=== PATIENT | male | born 1955 | race Caucasian/White ===

== ENCOUNTER 2023-09-17 14:51 | Outpatient (AMB) | payer MEDICARE, OTHER, SELFPAY ==
--- NOTE | 2023-09-17 14:49 | A.OFFVISCC_ITS ---
Intake Vital Signs 09/17/23 14:53 BP 130/70 Blood Pressure Location Rt radial Position Sitting Respiration 19 Pulse 88 Pulse Source Pulse Oximeter Pulse Oximetry (%) 98 Oxygen Delivery Method Room Air Intake Visit Reasons: MAT Intake Allergies No Known Allergies Allergy (Verified 09/17/23 15:12) HPI MAT Intake HPI Details Patient presents for evaluation and treatment of ongoing opiate use Patient started oxycodone in 1997 for back injury Since that time he has been taking it off and on --non prescribed He reports he has been taking 2 10mg oxys TID. He believes them to be prescription medications, and adamant that thy are not pressed pills Taking this amount for 4 years -no history of overdose --last use , 09/12. Reports previous problematic drinking stopped drinking 5 years ago no liver issues (per his report) Medical History PCP: [facility] primary care at [facility] 2017--ruptured appendix Denies any chronic health issues. Denies daily medications aside from vitamins Vit B, Mg, NAC, crill oil pill Denies family history BH History Reports previously being treated for anxiety with lorazepam. Unclear when this was or by who Bayronetn withdrawl sx: achy, restless, irritable, Review of Systems Const Reports as per HPI Physical Exam Vital Signs: Last Vital Signs Pulse 88 09/17/23 14:53 Resp 19 09/17/23 14:53 BP 130/70 09/17/23 14:53 Pulse Ox 98 09/17/23 14:53 Oxygen Delivery Method Room Air 09/17/23 14:53 Const General: cooperative, no acute distress, awake and anxious Nutritional Appearance: average body habitus Orientation/consciousness: patient oriented x3 Limitations: no limitations Neuro General: patient oriented x3 Results AMB 14 Panel Urine Drug Screen Urine Marijuana (THC) Positive Last Edit by Carrol Baker RN on 09/17/23 15:39 Urine Cocaine Positive Last Edit by Carrol Baker RN on 09/17/23 15:39 Urine Morphine Negative Last Edit by Carrol Baker RN on 09/17/23 15:39 Urine Methamphetamine Negative Last Edit by Carorl Baker RN on 09/17/23 15:39 Urine Amphetamine Negative Last Edit by Carrol Baker RN on 09/17/23 15:39 Urine Benzodiazepine Negative Last Edit by Carrol Baker RN on 09/17/23 15 :39 Urine Barbiturates Negative Last Edit by Carrol Baker RN on 09/17/23 15:3 9 Urine Methadone Negative Last Edit by Carrol Baker RN on 09/17/23 15:39 Urine Buprenorphine Positive Last Edit by Carrol Baker RN on 09/17/23 15: 39 Urine Tricyclic Antidepressant Positive Last Edit by Carrol Baker RN on 09/17/23 15:39 Urine MDMA Negative Last Edit by Carrol Baker RN on 09/17/23 15:39 Urine Oxycodone Negative Last Edit by Carrol Baker RN on 09/17/23 15:39 Urine Phencyclidine Negative Last Edit by Carrol Baker RN on 09/17/23 15: 39 Urine Propoxyphene Negative Last Edit by Carrol Baker RN on 09/17/23 15:3 9 Results Reviewed Results Reviewed: Laboratory Last Values POC Urine Buprenorphine Positive 09/17/23 15:31 POC Urine Morphine Negative 09/17/23 15:31 POC Urine Oxycodone Negative 09/17/23 15:31 POC Urine Methadone Negative 09/17/23 15:31 POC Urine Propoxyphene Negative 09/17/23 15:31 POC Urine Barbiturates Negative 09/17/23 15:31 POC U Tricyclic Antidpr Positive 09/17/23 15:31 POC Urine PCP Negative 09/17/23 15:31 POC Ur Amphetamines Negative 09/17/23 15:31 POC Ur Methamphetamine Negative 09/17/23 15:31 POC Urine MDMA Negative 09/17/23 15:31 POC Ur Benzodiazepine Negative 09/17/23 15:31 POC Urine Cocaine Positive 09/17/23 15:31 POC Ur Marijuana (THC) Positive 09/17/23 15:31 Assessment & Plan Assessment & Plan (1) Opioid use disorder: Code(s): F11.90 - Opioid use, unspecified, uncomplicated Plan: * Discussed plan for starting buprenorphine * provided in writing and verbally * advised to call office tomorrow to check in * follow up in office one week * labs next visit Orders: Orders AMB 14 Panel Urine Drug Screen 09/17/23 Z51.81 - Encounter for therapeutic drug level monitoring Medications: New buprenorphine-naloxone 2-0.5 mg (Suboxone) 1 film sublingual TID 22 ea 0RF tizanidine 4 mg PO BID PRN 10 caps 0RF muscle spasticity hydroxyzine HCl 25 mg PO BID PRN 10 tabs 0RF anxiety Coding Level of Care Code New Pt Level 4 (07074) Diagnoses Opioid use disorder F11.90
[2023-09-17 14:53] VITALS: BP 130/70; PULSE 88; RESP 19; O2SAT 98
== END 2023-09-17 15:43 | disposition home or self-care (01) ==
PROVIDERS: Visit Provider Nurse Practitioner Psychiatric/Mental Health
DX: F11.90 Opioid use, unspecified, uncomplicated (principal)
CPT/HCPCS: 99204

== ENCOUNTER → 2023-09-17 14:51 | Outpatient (BNVA) | payer MEDICARE, OTHER, SELFPAY | PROVIDERS: Visit Provider Nurse Practitioner Psychiatric/Mental Health | DX: F11.90 Opioid use, unspecified, uncomplicated (principal) | CPT/HCPCS: 80305 ==

== ENCOUNTER 2023-09-27 11:12 | Outpatient (AMB) | payer MEDICARE, OTHER, SELFPAY ==
--- NOTE | 2023-09-27 11:06 | A.OFFVISCC_ITS ---
Vital Signs 09/27/23 11:24 BP 132/98 H Blood Pressure Location Rt brachial Position Sitting Pulse 80 Pulse Source Pulse Oximeter Pulse Oximetry (%) 98 Oxygen Delivery Method Room Air Intake Visit Reasons: MAT Visit Allergies No Known Allergies Allergy (Verified 09/27/23 11:06) HPI HPI MAT Visit: Details: Patient presents for follow up Has been taking 2mg BID, but dose is not adequate Still feeling very anxious and on edge throughout the day Open to increasing dose No constipation , has not used any opiates since prior to starting buprenorphine Review of Systems Const Reports as per HPI and Reports no additional complaints Physical Exam Vital Signs: Last Vital Signs Pulse 80 09/27/23 11:24 BP 132/98 H 09/27/23 11:24 Pulse Ox 98 09/27/23 11:24 Oxygen Delivery Method Room Air 09/27/23 11:24 Const General: cooperative and comfortable Nutritional Appearance: average body habitus Orientation/consciousness: patient oriented x3 Limitations: no limitations Neuro General: patient oriented x3 Psych Appearance: well kempt Speech and movement: Clear speech present Affect: normal affect Attitude: cooperative Thought process: Normal thought process present Judgement: Good judgement present (Psych) Assessment & Plan Assessment & Plan (1) Opioid use disorder: Code(s): F11.90 - Opioid use, unspecified, uncomplicated Category: Medical Plan: * increase suboxone dose to 4mg BID * labs ordered * follow up one week Orders: Orders HIV Ab/Ag Today F11.90 - Opioid use, unspecified, uncomplicated Comprehensive Met. Panel Today F11.90 - Opioid use, unspecified, uncomplicated Hepatitis C Antibody Today F11.90 - Opioid use, unspecified, uncomplicated Complete Blood Count Auto Diff Today F11.90 - Opioid use, unspecified, uncomplicated Liver Panel Today F11.90 - Opioid use, unspecified, uncomplicated Medications: New buprenorphine-naloxone 4-1 mg (Suboxone) 1 film sublingual BID 28 ea 0RF Discontinued buprenorphine-naloxone 2-0.5 mg (Suboxone) Discontinued Reason: Doctor's Order 1 film sublingual TID 22 ea 0RF
[2023-09-27 11:24] VITALS: BP 132/98; PULSE 80; O2SAT 98
== END 2023-09-27 11:52 | disposition home or self-care (01) ==
PROVIDERS: Visit Provider Nurse Practitioner Psychiatric/Mental Health
DX: F11.90 Opioid use, unspecified, uncomplicated (principal)
CPT/HCPCS: 99214

== ENCOUNTER → 2023-09-27 11:12 | Outpatient (BNVA) | payer OTHER, MEDICARE, SELFPAY | PROVIDERS: Visit Provider Nurse Practitioner Psychiatric/Mental Health | DX: Z51.81 Encounter for therapeutic drug level monitoring (principal) ==

== ENCOUNTER 2023-10-03 12:28 | Outpatient (REF) | payer MEDICARE, OTHER, SELFPAY ==
[2023-10-03 12:53] LABS: MANUAL DIFF FLAG NO
[2023-10-03 13:24] LABS: Basophils Absolute Auto 0.1 X10*3/uL (0.0-0.2); Eosinophils Absolute Auto 0.3 X10*3/uL (0.0-0.4); Hematocrit 44.3 % (42.0-52.0); Hemoglobin 15.1 g/dl (14.0-18.0); Imm Gran Abs Auto 0.02 X10*3/uL (0.00-0.03); Imm Gran Pct Auto 0.2 % (0.0-0.4); Lymphocytes Absolute Auto 2.2 X10*3/uL (1.2-4.9); Lymphocytes Percent Auto 26.5 % (20-40); Mean Corpuscular HGB Conc 34.1 g/dl (31.0-36.0); Mean Corpuscular Volume 85.2 fL (80.0-98.0); Mean Platelet Volume 8.4 fL (9.4-12.4); Monocytes Absolute Auto 0.5 X10*3/uL (0.1-1.2); Monocytes Percent Auto 6.3 % (2-11); Neutrophils Absolute Auto 5.2 x10*3/uL (2.0-8.3); Platelet Count 303 X10*3/uL (160-400); Red Cell Distribution Width 12.3 % (11.0-16.0); White Blood Count 8.2 X10*3/uL (4.8-10.8)
[2023-10-03 13:53] LABS: Alanine Aminotransferase 15 U/L (0-40); Albumin Level 4.1 g/dL (3.5-5.0); Alkaline Phosphatase 62 U/L (39-117); Anion Gap 9 (12-20); Aspartate Amino Transferase 16 U/L (5-37); Bilirubin Direct 0.3 mg/dL (0.0-0.5); Bilirubin Total 0.8 mg/dL (0.0-1.0); Blood Urea Nitrogen 9 mg/dL (9-16); Calcium 8.9 mg/dL (8.4-10.2); Carbon Dioxide 31 mmol/L (22-29); Chloride 103 mmol/L (96-108); Estimated Glomerular Filt Rate > 60; Glucose Random 102 mg/dL (60-115); Potassium 4.4 mmol/L (3.3-5.1); Sodium 139 mmol/L (135-145); Total Protein 7.5 g/dL (6.5-8.0)
[2023-10-04 05:32] LABS: HIV AB/AG Nonreactive (Nonreactive); HIV Num 1 0.05 S/CO (0.00-0.99)
[2023-10-04 05:43] LABS: ~Hepatitis C Antibody Reactive (Nonreactive)
== END 2023-10-03 12:29 | disposition home or self-care (01) ==
LOC: HO.LAB 12:28
PROVIDERS: Visit Provider Nurse Practitioner Psychiatric/Mental Health
DX: F11.20 Opioid dependence, uncomplicated (principal)
CPT/HCPCS: 36415; 80053; 82248; 85025; 86803; 87389

== ENCOUNTER 2023-10-03 12:55 | Outpatient (AMB) | payer MEDICARE, OTHER, SELFPAY ==
--- NOTE | 2023-10-03 13:05 | A.OFFVISCC_ITS ---
Vital Signs 10/03/23 13:09 BP 152/94 H Blood Pressure Location Rt brachial Position Sitting Pulse 71 Pulse Source Pulse Oximeter Pulse Oximetry (%) 98 Oxygen Delivery Method Room Air Intake Visit Reasons: MAT Visit Allergies No Known Allergies Allergy (Verified 10/08/23 11:25) HPI HPI MAT Visit: Details: Patient presents for follow up Doing well with suboxone dose increase some anxiety still lio when he is not busy discussed coping strategies lab work completed [facility] Social History Smoked in Last 30 Days: No Use of substances other than those prescribed or required for medical reasons: Yes Substance Use Type: Marijuana Substance Use Frequency: Occasionally Advance Directives: No Advance Directives Information Provided: Yes Do you have a plan to hurt others: No Plan Review of Systems Const Reports as per HPI and Reports no additional complaints Physical Exam Vital Signs: Last Vital Signs Pulse 71 10/03/23 13:09 BP 152/94 H 10/03/23 13:09 Pulse Ox 98 10/03/23 13:09 Oxygen Delivery Method Room Air 10/03/23 13:09 Const General: cooperative and comfortable Nutritional Appearance: average body habitus Orientation/consciousness: patient oriented x3 Limitations: no limitations Neuro General: patient oriented x3 Psych Appearance: well kempt Speech and movement: Clear speech present Affect: normal affect Attitude: cooperative Thought process: Normal thought process present Judgement: Good judgement present (Psych) Assessment & Plan Assessment & Plan (1) Opioid use disorder: Code(s): F11.90 - Opioid use, unspecified, uncomplicated Category: Medical Plan: * continue suboxone at current dose * labs to be reviewed at next visit * follow up one week
[2023-10-03 13:09] VITALS: BP 152/94; PULSE 71; O2SAT 98
== END 2023-10-03 13:29 | disposition home or self-care (01) ==
PROVIDERS: Visit Provider Nurse Practitioner Psychiatric/Mental Health
DX: F11.90 Opioid use, unspecified, uncomplicated (principal)
CPT/HCPCS: 99213

== ENCOUNTER 2023-10-08 11:02 | Emergency (ER) | payer MEDICARE, OTHER, SELFPAY ==
--- NOTE | ~2023-10-08 | XR_ITS ---
EXAMINATION: XR FOOT, RIGHT CLINICAL INFORMATION: Right foot pain. COMPARISON: None available. TECHNIQUE: AP, lateral, and oblique views of the right foot. FINDINGS: No acute fracture or dislocation. Joint space narrowing with small marginal osteophytes along the dorsal aspect of the talonavicular, cuneonavicular, and tarsometatarsal joints. Tiny plantar calcaneal spur. Small tibiotalar marginal osteophytes. Circumferential forefoot edema. No radiopaque foreign body. XR/XR foot RT min 3V IMPRESSION: 1. Circumferential forefoot edema without radiopaque foreign body. 2. Mild degenerative arthritis at the tibiotalar, talonavicular, and tarsometatarsal joints. 3. Tiny plantar calcaneal spur.
[2023-10-08 11:21] VITALS: BP 148/76; PULSE 82; RESP 16; TEMP 36.1; O2SAT 96; BMI 33.1
--- NOTE | 2023-10-08 11:22 | ED.GENADULT ---
HPI - General Adult General Chief complaint: Extremity Injury, Lower Stated complaint: Gout flare? Time Seen by Provider: 10/08/23 11:52 Source: patient Mode of arrival: ambulatory Limitations: no limitations History of Present Illness HPI narrative: 68 yo male who presents to the ED with complaint of right foot pain X3 days. denies any known injury; states he woke up with the pain, swelling and redness. pain is worse with walking and weight bearing. he denies any known history of gout. denies fever, chills, nausea, vomiting, chest pain, shortness of breath, prior history of blood clots. patient did not try anything for pain at home; he recently started suboxone therapy. patient reports drinking alcohol occasionally and does consume a fare amount of red meat. Patient denies IVDU Onset (ago): day(s) (3) Location: lower extremity (right foot) Radiation: non-radiation Severity: moderate Severity scale (1-10): 7 Quality: burning, sharp and constant Relieving factors: none Related Data Previous Rx's ?Medication ?Instructions ?Recorded hydroxyzine HCl 25 mg tablet 25 mg PO BID PRN anxiety #10 tabs 09/17/23 tizanidine 4 mg capsule 4 mg PO BID PRN muscle spasticity 09/17/23 #10 caps buprenorphine 4 mg-naloxone 1 mg 1 film sublingual BID #28 ea 09/28/23 sublingual film (Suboxone) naproxen 500 mg tablet 500 mg PO BID #20 tabs 10/08/23 prednisone 20 mg tablet See Rx Instructions .Route 10/08/23 .COMPLEX 12 days #20 tabs Allergies Allergy/AdvReac Type Severity Reaction Status Date / Time No Known Allergies Allergy Verified 10/08/23 11:25 Review of Systems Review of Systems: per HPI Yes all other systems are reviewed and are negative PMFSH Social History Social History Smoked in Last 30 Days: No Use of substances other than those prescribed or required for medical reasons: Yes Substance Use Type: Marijuana Substance Use Frequency: Occasionally Advance Directives: No Advance Directives Information Provided: Yes Do you have a plan to hurt others: No Plan Physical Exam ED Vital Signs: Vital Signs - 24 hr 10/08/23 11:21 10/08/23 15:07 10/08/23 15:19 Temperature 97 F 99.0 F 99.0 F Pulse Rate 82 74 74 Respiratory Rate 16 18 18 Blood Pressure 148/76 H 140/77 H 140/77 H Pulse Oximetry 96 98 98 Oxygen Delivery Method Room Air Room Air Room Air BMI result Body Mass Index 33.1 Const General: cooperative, no acute distress, well developed, alert and awake HENMT Head: Yes normal to inspection Neck Neck: Yes normal visual inspection, Yes full ROM and Yes no lymphadenopathy Resp Effort & Inspection: normal respiratory effort and able to speak in complete sentences Auscultation: clear to auscultation bilaterally Cardio Rate: regular rate Rhythm: regular rhythm Skin Rashes: no rashes Trauma: no lacerations or abrasions Wounds: no wounds Extrem Other: right lower extremity with moderate swelling to right foot; erythema and increased warmth to the 1st metatarsal joint. area is tender to touch. normal ROM of all toes; normal capillary refill and sensation Course Course Course Narrative: This is an RME: Additional HPI, ROS, PE not included below will be deferred to primary provider. 68 yo m with pmhx of opioid use disorder presents with right big toe pain since sunday. States he has never had gout previously. No trauma to area, has trouble walking. Denies cp, sob, fever, chills, nausea, vomiting, diarrhea. Medical Decision Making Medical Decision Making MDM Narrative: 68 yo male with PMH of opiate use disorder who presents to the ED with complaint of non-traumatic right foot pain X3 days. HPI and physical exam as above. upon presentation patient is hemodynamically stable, afrebrile, with stable vital signs. patient is not ill or toxic appearing DDx include but not limited to gout flare, cellulitis, septic arthritis, stress fracture Xray showed: - Circumferential forefoot edema without radiopaque foreign body. - Mild degenerative arthritis at the tibiotalar, talonavicular, and tarsometatarsal joints. - Tiny plantar calcaneal spur. Laboratory results are notable for uric acid of 8.3 but otherwise reassuring; no leukocytosis or significant metabolic derangement. given clinical presentation and results of evaluation symptoms are most likely due to gout flare. Doubt infectious etiologies. Will treat with prednisone taper and naproxen. discussed results of evaluation with the patient. advised on supportive care and outpatient follow up. Advised on outpatient follow up and provided contact information for local PCP offices for patient to establish care. Discussed with the patient when to seek medical attention for any new or concerning symptoms. Patient expressed understanding and agrees to treatment plan. Lab Data MDM Lab Attestation statement: I reviewed the patient's lab results. 10/08/23 13:57 10/08/23 13:56 Labs: Lab Results 10/08/23 10/08/23 Range/Units 13:56 13:57 WBC 9.7 (4.8-10.8) X10*3/uL RBC 5.06 (4.60-5.80) X10*6/uL Hgb 14.8 (14.0-18.0) g/dl Hct 43.4 (42.0-52.0) % MCV 85.8 (80.0-98.0) fL MCH 29.2 (27.0-33.0) pg MCHC 34.1 (31.0-36.0) g/dl RDW 12.5 (11.0-16.0) % Plt Count 318 (160-400) X10*3/uL MPV 8.3 L (9.4-12.4) fL Immature Gran % (Auto) 0.3 (0.0-0.4) % Neut % (Auto) 67.0 (45-73) % Lymph % (Auto) 22.5 (20-40) % Norton % (Auto) 7.7 (2-11) % Eos % (Auto) 1.9 (0-4) % Baso % (Auto) 0.6 (0-2) % Lymph # (Auto) 2.2 (1.2-4.9) X10*3/uL Norton # (Auto) 0.8 (0.1-1.2) X10*3/uL Eos # (Auto) 0.2 (0.0-0.4) X10*3/uL Baso # (Auto) 0.1 (0.0-0.2) X10*3/uL Abs Immat Gran (auto) 0.03 (0.00-0.03) X10*3/uL Absolute Neuts (auto) 6.5 (2.0-8.3) x10*3/uL Absolute Nucleated RBC 0.000 (0.0-0.012) X10*3/uL Nucleated RBC % (auto) 0.0 (0.0-0.2) /100WBC Sodium 137 (135-145) mmol/L Potassium 4.8 (3.3-5.1) mmol/L Chloride 100 (96-108) mmol/L Carbon Dioxide 32 H (22-29) mmol/L Anion Gap 10 L (12-20) BUN 14 (9-16) mg/dL Creatinine 0.91 (0.5-1.4) mg/dL Estim Creat Clear Calc 93.9 Estimated GFR > 60 Random Glucose 99 (60-115) mg/dL Uric Acid 8.3 H (3.4-7.0) mg/dL Calcium 9.5 D (8.4-10.2) mg/dL Independent Interpretation I performed an independent interpretation of an: Plain X-Ray Radiology Impression Discussion of test interpretation with radiology: I have reviewed the radiologist's reading. Radiologist Impression: No acute fracture or dislocation. Joint space narrowing with small marginal osteophytes along the dorsal aspect of the talonavicular, cuneonavicular, and tarsometatarsal joints. Tiny plantar calcaneal spur. Small tibiotalar marginal osteophytes. Circumferential forefoot edema. No radiopaque foreign body. External Record Review External record reviewed: Office record, Outpatient record and Prior outpatient labs Prescription Management I considered prescription management with: Pain Medication Social Determinants Patient?s care significantly limited by Social Determinants of Health including: Other Social Determinant of Health No PCP Discharge Plan Discharge Clinical Impression: Acute foot pain, Gout attack Patient Disposition: Home, Self-Care Instructions: Gout (ED) Additional Instructions: Your symptoms are most likely secondary to gout. You were given prescription for prednisone taper and naproxen, please, take as prescribed and make sure to complete the entire prescription of prednisone. Avoid alcohol, red meat, and sea food. We recommend you establish care with primary care clinic at your earliest convenience for proper follow up. Return to the ED for any new or concerning symptoms. Prescriptions: New prednisone 20 mg tablet See Rx Instructions .ROUTE .COMPLEX 12 Days Qty: 20 0RF Rx Instructions: 60 mg (3 tabs) orally once daily for 3 days; then take 40 mg (2 tabs) orally once daily for 3 day; then take 20 mg (1 tab) orally once daily for 3 day; then take 10 mg (0.5 tab) orally once daily for 3 day. naproxen 500 mg tablet 500 mg PO BID Qty: 20 0RF No Action buprenorphine-naloxone [Suboxone] 4-1 mg film 1 film sublingual BID Qty: 28 0RF tizanidine 4 mg capsule 4 mg PO BID PRN (Reason: muscle spasticity) Qty: 10 0RF hydroxyzine HCl 25 mg tablet 25 mg PO BID PRN (Reason: anxiety) Qty: 10 0RF Interventions: ED Discharge Assessment Last Done: 10/08/23 15:19 Discharge Date/Time: 10/08/23 15:21 Print Language: Sami
--- NOTE | 2023-10-08 13:51 | PC.NURSE ---
this nurse attempted x1 to get labs with butterfly-per request of patient. the area immediately blew upon getting flash, the pt refusing to allow labs to be drawn.
[2023-10-08 14:01] LABS: MANUAL DIFF FLAG NO
[2023-10-08 14:03] LABS: Basophils Absolute Auto 0.1 X10*3/uL (0.0-0.2); Basophils Percent Auto 0.6 % (0-2); Eosinophils Absolute Auto 0.2 X10*3/uL (0.0-0.4); Eosinophils Percent Auto 1.9 % (0-4); Hematocrit 43.4 % (42.0-52.0); Hemoglobin 14.8 g/dl (14.0-18.0); Imm Gran Abs Auto 0.03 X10*3/uL (0.00-0.03); Imm Gran Pct Auto 0.3 % (0.0-0.4); Lymphocytes Absolute Auto 2.2 X10*3/uL (1.2-4.9); Lymphocytes Percent Auto 22.5 % (20-40); Mean Corpuscular HGB Conc 34.1 g/dl (31.0-36.0); Mean Corpuscular Hemoglobin 29.2 pg (27.0-33.0); Mean Corpuscular Volume 85.8 fL (80.0-98.0); Mean Platelet Volume 8.3 fL (9.4-12.4); Monocytes Absolute Auto 0.8 X10*3/uL (0.1-1.2); Monocytes Percent Auto 7.7 % (2-11); Neutrophils Absolute Auto 6.5 x10*3/uL (2.0-8.3); Platelet Count 318 X10*3/uL (160-400); Red Blood Count 5.06 X10*6/uL (4.60-5.80); Red Cell Distribution Width 12.5 % (11.0-16.0); White Blood Count 9.7 X10*3/uL (4.8-10.8)
[2023-10-08 14:45] LABS: Anion Gap 10 (12-20); Blood Urea Nitrogen 14 mg/dL (9-16); Calcium 9.5 mg/dL (8.4-10.2); Carbon Dioxide 32 mmol/L (22-29); Chloride 100 mmol/L (96-108); Creatinine Clr Calc Pharmacy 93.9; Estimated Glomerular Filt Rate > 60; Glucose Random 99 mg/dL (60-115); Potassium 4.8 mmol/L (3.3-5.1); Sodium 137 mmol/L (135-145)
[2023-10-08 14:47] LABS: Uric Acid 8.3 mg/dL (3.4-7.0)
[2023-10-08 15:07] VITALS: BP 140/77; PULSE 74; RESP 18; TEMP 37.2; O2SAT 98
[2023-10-08 15:19] VITALS: BP 140/77; PULSE 74; RESP 18; TEMP 37.2; O2SAT 98
== END 2023-10-08 15:21 | disposition home or self-care (01) ==
PROVIDERS: Physician Assistant; Emergency Provider Emergency Medicine
DX: M10.071 Idiopathic gout, right ankle and foot (principal); M79.671 Pain in right foot; Z79.899 Other long term (current) drug therapy
CPT/HCPCS: 36415; 73630; 80048; 84550; 85025; 99283; 99284

== ENCOUNTER 2023-10-10 10:17 | Outpatient (AMB) | payer MEDICARE, OTHER, SELFPAY ==
[2023-10-10 10:21] VITALS: BP 160/92; PULSE 84; O2SAT 98
--- NOTE | 2023-10-10 10:21 | A.OFFVISCC_ITS ---
Vital Signs 10/10/23 10:21 BP 160/92 H Blood Pressure Location Rt brachial Position Sitting Pulse 84 Pulse Source Pulse Oximeter Pulse Oximetry (%) 98 Oxygen Delivery Method Room Air Intake Visit Reasons: MAT Visit Allergies No Known Allergies Allergy (Verified 10/10/23 10:22) HPI HPI MAT Visit: Details: Patient presents for follow up and review of lab work Recently in ED with gout--new for him Tolerating current suboxone dose Discussed lab results and +Hepatitis C antibody result. Patient appearing quite surprised and anxious by this news. He denies any previous diagnosis, although unclear if he has even ever been tested. Reviewed risk factors and answered patient questions and concerns. Provided reassurance and support Discussed next steps including additional lab work and referral to ID provider to further evaluate [facility] Social History Substance Use Type: Marijuana Review of Systems Const Reports as per HPI Physical Exam Vital Signs: Last Vital Signs Pulse 84 10/10/23 10:21 BP 160/92 H 10/10/23 10:21 Pulse Ox 98 10/10/23 10:21 Oxygen Delivery Method Room Air 10/10/23 10:21 Const General: cooperative and comfortable Nutritional Appearance: average body habitus Orientation/consciousness: patient oriented x3 Limitations: no limitations Neuro General: patient oriented x3 Psych Appearance: well kempt Speech and movement: Clear speech present Affect: Anxious affect present Attitude: cooperative Thought process: Normal thought process present and Circumstantial thought process present Judgement: Good judgement present (Psych) Assessment & Plan Assessment & Plan (1) Opioid use disorder: Code(s): F11.90 - Opioid use, unspecified, uncomplicated Category: Medical Plan: * continue suboxone at current dose * referral to ID * VL and hepatitis A&B screen ordered * HIV negative * follow up 2 weeks Orders: Referrals Infectious Disease Referral B18.2 - Chronic viral hepatitis C Medications: New buprenorphine-naloxone 4-1 mg (Suboxone) 1 film buccal TID 42 ea 0RF Discontinued buprenorphine-naloxone 4-1 mg Discontinued Reason: Doctor's Order 1 film sublingual BID 28 ea 0RF
== END 2023-10-10 10:54 | disposition home or self-care (01) ==
PROVIDERS: Visit Provider Nurse Practitioner Psychiatric/Mental Health
DX: F11.90 Opioid use, unspecified, uncomplicated (principal)
CPT/HCPCS: 99214

== ENCOUNTER → 2023-10-10 10:17 | Outpatient (BNVA) | payer OTHER, MEDICARE, SELFPAY | PROVIDERS: Visit Provider Nurse Practitioner Psychiatric/Mental Health | DX: Z51.81 Encounter for therapeutic drug level monitoring (principal) ==

== ENCOUNTER 2023-10-22 15:12 | Outpatient (AMB) | payer MEDICARE, OTHER, SELFPAY ==
--- NOTE | 2023-10-22 15:17 | MHC.OFFVIS ---
Vital Signs 10/22/23 15:31 Height 5 ft 9 in Weight 229 lb BMI 33.8 BP 151/83 H Blood Pressure Location Lt brachial Position Sitting Pulse 106 H Pulse Source Pulse Oximeter Pulse Oximetry (%) 97 Oxygen Delivery Method Room Air Intake Visit Reasons: reff Radha nice/Hep C Allergies No Known Allergies Allergy (Verified 10/22/23 15:31) HPI HPI reff Radha nice/Hep C: Details: He has new positive diagnosis Hepatitis C he is concerned about. Viral load is nonreactive. HIV is negative. FORMERLY [facility], 1928–1983 Medical History Hepatitis C Social History Substance Use Type: Marijuana Review of Systems Const All systems reviewed & are unremarkable except as noted in HPI and below Physical Exam Vital Signs: Last Vital Signs Pulse 106 H 10/22/23 15:31 BP 151/83 H 10/22/23 15:31 Pulse Ox 97 10/22/23 15:31 Oxygen Delivery Method Room Air 10/22/23 15:31 BMI result Body Mass Index 33.8 Const General: cooperative Orientation/consciousness: patient oriented x3 HEENT Head: Yes normal to inspection Mouth: Normal oral and palatal mucosa present Eyes General: appearance normal, both eyes and all related structures Pupils: Equal, round and reactive pupils present Resp Effort & Inspection: normal respiratory effort Cardio Rate: regular rate Rhythm: regular rhythm GI Palpation (GI): Soft to palpation and nontender General: Yes no CVA tenderness Back/Spine/Pelvis Back: no CVA tenderness Skin General skin exam: no rashes or lesions noted Neuro General: patient oriented x3 Cranial nerves: Yes CN's II-XII intact bilaterally and Yes Equal, round and reactive pupils present Extrem General: Yes normal to inspection Psych Appearance: grossly normal Assessment & Plan Assessment & Plan (1) Hepatitis C: Comment: He is undetectable,not contagious Code(s): B19.20 - Unspecified viral hepatitis C without hepatic coma Category: Medical Plan: No need for treatment, Hepatitis is resolved by self. Orders: Orders Liver Fibrosis Pnl 10/23/23 B19.20 - Unspecified viral hepatitis C without hepatic coma Prothrombin Time INR 10/23/23 B19.20 - Unspecified viral hepatitis C without hepatic coma Coding Level of Care Code New Pt Level 3 (08655) Diagnoses Hepatitis C B19.20
[2023-10-22 15:31] VITALS: BP 151/83; PULSE 106; O2SAT 97; BMI 33.8
== END 2023-10-22 15:18 | disposition home or self-care (01) ==
LOC: HO.HID 15:12
PROVIDERS: Visit Provider Internal Medicine
DX: B19.20 Unspecified viral hepatitis C without hepatic coma (principal)
CPT/HCPCS: 99203

== ENCOUNTER → 2023-10-22 15:12 | Outpatient (BNVA) | payer MEDICARE, OTHER, SELFPAY | PROVIDERS: Visit Provider Internal Medicine | DX: B19.20 Unspecified viral hepatitis C without hepatic coma (principal) | CPT/HCPCS: 99202 ==

== ENCOUNTER 2023-10-23 10:08 | Outpatient (REF) | payer MEDICARE, OTHER, SELFPAY ==
[2023-10-23 11:18] LABS: Prothrombin Time 11.9 SEC (11.1-13.3)
[2023-10-24 08:16] LABS: HBS Num1 0.26 mIU/mL (0-7.99); HBc Num1 0.36 S/CO (0.00-0.79); HBsAGNum1 0.23 S/CO (0.00-0.99); Hepatitis B Core Antibody Nonreactive (Nonreactive); Hepatitis B Surface Antigen Negative (Negative); ~Hepatitis B Surface Antibody NONREACTIVE (Nonreactive)
[2023-10-24 08:22] LABS: Hepatitis A Antibody IgG REACTIVE (Nonreactive); Hepatitis A Antibody IgM 0.37 Index (0-0.79); ~Hepatitis A Antibody IgM Nonreactive (Nonreactive)
[2023-10-24 16:08] LABS: HCV Log PCR <1.18 NOT DETECTED Log IU/mL (NOT DETECTED); HepC Viral Load <15 NOT DETECTED IU/mL (NOT DETECTED)
[2023-11-02 01:13] LABS: FIB-ALT 15 U/L (9-46); FIB-Alpha-2-Macroglobulin 146 mg/dL (106-279); FIB-Apolipoprotein A1 144 mg/dL (94-176); FIB-GGT 21 U/L (3-70); FIB-Haptoglobin 176 mg/dL (43-212); FIB-Total Bilirubin 0.7 mg/dL (0.2-1.2); Liver Fibrosis Score 0.19; Liver Fibrosis Stage F0; Nec Inflam Act Grade A0; Nec Inflam Act Score 0.04
== END 2023-10-23 10:09 | disposition home or self-care (01) ==
LOC: HO.LAB 10:08
PROVIDERS: PCP Internal Medicine; Visit Provider Nurse Practitioner Psychiatric/Mental Health
DX: B19.20 Unspecified viral hepatitis C without hepatic coma (principal)
CPT/HCPCS: 36415; 81596; 85610; 86704; 86706; 86708; 86709; 87340; 87522

== ENCOUNTER 2023-10-24 09:53 | Outpatient (AMB) | payer MEDICARE, OTHER, SELFPAY ==
--- NOTE | 2023-10-24 09:54 | MHC.AM.SUB ---
Vital Signs 10/24/23 09:56 BP 148/80 H Blood Pressure Location Lt brachial Position Sitting Pulse 106 H Pulse Source Pulse Oximeter Pulse Oximetry (%) 99 Oxygen Delivery Method Room Air Intake Visit Reasons: MAT Follow up Allergies No Known Allergies Allergy (Verified 10/22/23 15:31) HPI HPI MAT Follow up: Details: Patient presents for OUD treatment follow up Doing well with current suboxone dose (TID) no side effects from medication reported Saw ID provider earlier this week -more labs drawn He states that she feels he may have had it and cleared it. Reporting increase in anxiety issues at work --planning to fully retire in June 2024 more free time found that hydroxyzine was helpful-will refill today [facility] Medical History (Updated 10/22/23 @ 15:52 by Susan Herrera MD) Hepatitis C Social History Substance Use Type: Marijuana Review of Systems Const Reports as per HPI Physical Exam Vital Signs: Last Vital Signs Pulse 106 H 10/24/23 09:56 BP 148/80 H 10/24/23 09:56 Pulse Ox 99 10/24/23 09:56 Oxygen Delivery Method Room Air 10/24/23 09:56 Const General: cooperative, healthy appearing and no acute distress Nutritional Appearance: average body habitus Orientation/consciousness: patient oriented x3 Limitations: no limitations Neuro General: patient oriented x3 Psych Appearance: well kempt Speech and movement: Normal speech and movement present Affect: normal affect Attitude: cooperative Thought process: Normal thought process present and Circumstantial thought process present Thought content: Normal thought content present Insight: Good insight present (Psych) Judgement: Good judgement present (Psych) Assessment & Plan Assessment & Plan (1) Opioid use disorder: Code(s): F11.90 - Opioid use, unspecified, uncomplicated Category: Medical Plan: continue suboxone at current dose refilled hydroxyxzine PRN for anxiety follow up 2 weeks Medications: Refilled hydroxyzine HCl 25 mg PO BID PRN 30 tabs 0RF anxiety buprenorphine-naloxone 4-1 mg (Suboxone) 1 film buccal TID 42 ea 0RF
[2023-10-24 09:56] VITALS: BP 148/80; PULSE 106; O2SAT 99
== END 2023-10-24 10:15 | disposition home or self-care (01) ==
PROVIDERS: Visit Provider Nurse Practitioner Psychiatric/Mental Health
DX: F11.90 Opioid use, unspecified, uncomplicated (principal)
CPT/HCPCS: 99213

== ENCOUNTER → 2023-10-24 09:53 | Outpatient (BNVA) | payer OTHER, MEDICARE, SELFPAY | PROVIDERS: Visit Provider Nurse Practitioner Psychiatric/Mental Health | DX: Z51.81 Encounter for therapeutic drug level monitoring (principal) ==

== ENCOUNTER 2023-11-06 09:21 | Outpatient (AMB) | payer MEDICARE, OTHER, SELFPAY ==
[2023-11-06 09:25] VITALS: BP 128/76; PULSE 75; O2SAT 96
--- NOTE | 2023-11-06 09:25 | A.OFFVISCC_ITS ---
Vital Signs 11/06/23 09:25 BP 128/76 Blood Pressure Location Rt brachial Position Sitting Pulse 75 Pulse Source Pulse Oximeter Pulse Oximetry (%) 96 Oxygen Delivery Method Room Air Intake Visit Reasons: MAT Follow up Allergies No Known Allergies Allergy (Verified 10/22/23 15:31) HPI HPI MAT Follow up: Details: Patient presents for OUD treatment follow up Still having difficulty difficulty finding primary care--has called numerous times per his report No Hepatitis C VL --happy to hear this. ID called him on Sunday to inform him of his lab results Suboxone dose stable and managing sx well PFSH Medical History Hepatitis C Social History Substance Use Type: Marijuana Review of Systems Const Reports as per HPI and Reports no additional complaints Physical Exam Vital Signs: Last Vital Signs Pulse 75 11/06/23 09:25 BP 128/76 11/06/23 09:25 Pulse Ox 96 11/06/23 09:25 Oxygen Delivery Method Room Air 11/06/23 09:25 Const General: cooperative, healthy appearing and no acute distress Nutritional Appearance: average body habitus Orientation/consciousness: patient oriented x3 Limitations: no limitations Neuro General: patient oriented x3 Psych Appearance: well kempt Speech and movement: Normal speech and movement present Affect: normal affect Attitude: cooperative Thought process: Normal thought process present and Circumstantial thought process present Thought content: Normal thought content present Insight: Good insight present (Psych) Judgement: Good judgement present (Psych) Assessment & Plan Assessment & Plan (1) Opioid use disorder: Code(s): F11.90 - Opioid use, unspecified, uncomplicated Category: Medical Plan: * continue suboxone at current dose * follow up 2 weeks * office staff to assist with scheduling PCP appt Medications: Refilled buprenorphine-naloxone 4-1 mg (Suboxone) 1 film buccal TID 42 ea 0RF
== END 2023-11-06 09:46 | disposition home or self-care (01) ==
PROVIDERS: Visit Provider Nurse Practitioner Psychiatric/Mental Health
DX: F11.90 Opioid use, unspecified, uncomplicated (principal)
CPT/HCPCS: 99213

== ENCOUNTER → 2023-11-06 09:21 | Outpatient (BNVA) | payer OTHER, MEDICARE, SELFPAY | PROVIDERS: Visit Provider Nurse Practitioner Psychiatric/Mental Health | DX: Z51.81 Encounter for therapeutic drug level monitoring (principal) ==

== ENCOUNTER 2023-11-21 12:58 | Outpatient (AMB) | payer MEDICARE, OTHER, SELFPAY ==
--- NOTE | 2023-11-21 12:58 | MHC.OFFVIS ---
Vital Signs 11/21/23 13:04 BP 140/82 H Blood Pressure Location Rt brachial Position Sitting Pulse 78 Pulse Source Pulse Oximeter Pulse Oximetry (%) 98 Oxygen Delivery Method Room Air Intake Visit Reasons: MAT Visit Allergies No Known Allergies Allergy (Verified 11/21/23 12:58) HPI HPI MAT Visit: Details: Patient presents for OUD treatment follow up Doing well with current suboxone dose Denies any side effects Appearing restless, reports he drank an energy drink prior to coming in Very grateful regarding assistance getting PCP appt made Going to [place], [place] over the weekend with friends [facility] Medical History Hepatitis C Social History Substance Use Type: Marijuana Review of Systems Const Reports as per HPI Physical Exam Vital Signs: Last Vital Signs Pulse 78 11/21/23 13:04 BP 140/82 H 11/21/23 13:04 Pulse Ox 98 11/21/23 13:04 Oxygen Delivery Method Room Air 11/21/23 13:04 Const General: cooperative, healthy appearing and no acute distress Nutritional Appearance: average body habitus Orientation/consciousness: patient oriented x3 Limitations: no limitations Neuro General: patient oriented x3 Psych Appearance: well kempt Speech and movement: Normal speech and movement present Affect: normal affect Attitude: cooperative Thought process: Normal thought process present and Circumstantial thought process present Thought content: Normal thought content present Insight: Good insight present (Psych) Judgement: Good judgement present (Psych) Assessment & Plan Assessment & Plan (1) Opioid use disorder: Code(s): F11.90 - Opioid use, unspecified, uncomplicated Category: Medical Plan: continue suboxone at current dose follow up 2 weeks Medications: Refilled buprenorphine-naloxone 4-1 mg (Suboxone) 1 film buccal TID 42 ea 0RF Coding Level of Care Code Est Pt Level 3 (27863) Diagnoses Opioid use disorder F11.90
[2023-11-21 13:04] VITALS: BP 140/82; PULSE 78; O2SAT 98
== END 2023-11-21 13:23 | disposition home or self-care (01) ==
PROVIDERS: Visit Provider Nurse Practitioner Psychiatric/Mental Health
DX: F11.90 Opioid use, unspecified, uncomplicated (principal)
CPT/HCPCS: 99213

== ENCOUNTER → 2023-11-21 12:58 | Outpatient (BNVA) | payer MEDICARE, OTHER, SELFPAY | PROVIDERS: Visit Provider Nurse Practitioner Psychiatric/Mental Health | DX: F11.20 Opioid dependence, uncomplicated (principal); Z79.899 Other long term (current) drug therapy | CPT/HCPCS: 99212 ==

== ENCOUNTER 2023-12-04 10:29 | Outpatient (AMB) | payer MEDICARE, OTHER, SELFPAY ==
--- NOTE | 2023-12-04 10:34 | A.OFFVISCC_ITS ---
Intake Visit Reasons: MAT Visit Allergies ibuprofen Allergy (Intermediate, Verified 12/04/23 10:40) Hives HPI HPI MAT Visit: Details: Patient presents for follow up Currently prescribed Suboxone 4mg TID Reports feeling overall better, life is good , however still experiencing pain in knees and feet First appt with new PCP is January 06 Denies any side effects related to Suboxone PFSH Medical History Hepatitis C Social History Substance Use Type: Marijuana Review of Systems Const Reports as per HPI and Reports no additional complaints Physical Exam Const General: cooperative, healthy appearing and no acute distress Nutritional Appearance: average body habitus Orientation/consciousness: patient oriented x3 Limitations: no limitations Neuro General: patient oriented x3 Psych Appearance: well kempt Speech and movement: Normal speech and movement present Affect: normal affect Attitude: cooperative Thought process: Normal thought process present Thought content: Normal thought content present Insight: Good insight present (Psych) Judgement: Good judgement present (Psych) Assessment & Plan Assessment & Plan (1) Opioid use disorder: Code(s): F11.90 - Opioid use, unspecified, uncomplicated Category: Medical Plan: * continue suboxone at current dose * follow up 5 weeks due to provider appt * given 4 week rx with refill Medications: Refilled buprenorphine-naloxone 4-1 mg (Suboxone) 1 film buccal TID 90 ea 1RF
== END 2023-12-04 11:06 | disposition home or self-care (01) ==
PROVIDERS: Visit Provider Nurse Practitioner Psychiatric/Mental Health
DX: F11.90 Opioid use, unspecified, uncomplicated (principal)
CPT/HCPCS: 99213

== ENCOUNTER → 2023-12-04 10:29 | Outpatient (BNVA) | payer MEDICARE, OTHER, SELFPAY | PROVIDERS: Visit Provider Nurse Practitioner Psychiatric/Mental Health | DX: F11.20 Opioid dependence, uncomplicated (principal); Z79.899 Other long term (current) drug therapy | CPT/HCPCS: 99212 ==

== ENCOUNTER 2024-01-11 11:08 | Outpatient (AMB) | payer MEDICARE, OTHER, SELFPAY ==
[2024-01-11 11:10] VITALS: BP 140/78; PULSE 66; O2SAT 97; BMI 33.1
--- NOTE | 2024-01-11 11:10 | MHC.PC.OV ---
Vital Signs 01/11/24 11:10 Height 5 ft 9 in Weight 224 lb BMI 33.1 BP 140/78 H Blood Pressure Location Lt brachial Position Sitting Pulse 66 Pulse Source Pulse Oximeter Pulse Oximetry (%) 97 Oxygen Delivery Method Room Air Intake Visit Reasons: establish care/ new patient Group Work Program Aide Required: No Allergies ibuprofen Allergy (Intermediate, Verified 01/11/24 11:24) Hives Medication List - Last Reconciled 01/11/24 by Martha Aparicio PA-C buprenorphine-naloxone 4-1 mg (Suboxone) 1 film buccal TID hydroxyzine HCl 25 mg PO BID PRN Tobacco use date assessed: 01/11/24 Fall risk assessment: No Falls in past year Last assessed Fall Risk: 01/11/24 Dental Screening Dental Screen Date: 01/11/24 Did you have a dental visit in the last 12 months?: No Did you have a dental problem in the last 6 months where you did not have access to dental care?: No HPI establish care/ new patient HPI Details 68-year-old male with past medical history of opioid use disorder and hepatitis-C coming to the office for the 1st time.? In review of the notes, patient follows with a [facility] comprehensive care currently on Suboxone follow up in 5 weeks.? Also seen by infectious disease 10/2023 for for hepatitis-C no need for treatment hepatitis is resolved by self.? Patient was seen in [facility] ED for 09/2023 treated for gout with prednisone taper naproxen. Today he tells us he has a long history of tendinitis as well as bilateral foot pain and low back pain that occasionally radiates down the legs. He also has a history of abscess appendix and underwent treatment several years ago. He has been told in the past he has elevated blood pressure and cholesterol but has never underwent treatment. ON LICENSE OF [facility] Medical History (Updated 01/11/24 @ 12:04 by Martha Aparicio PA-C) Hepatitis C Surgical History (Updated 01/11/24 @ 11:26 by Martha Aparicio PA-C) History of appendectomy History of nasal surgery Family History (Updated 01/11/24 @ 11:27 by Martha Aparicio PA-C) Father Heart disease Social History (Updated 01/11/24 @ 11:28 by Martha Aparicio PA-C) Housing: House Alcohol intake: current Alcohol intake frequency: a few times a week Patient Tobacco Use Status: Never used Tobacco Substance Use Type: Marijuana service: No Current occupational status: employed Cognitive needs: No Hearing needs: No Vision needs: No Questionnaire PHQ-9 Over the last 2 weeks, how often have you been bothered by any of the following problems? 1. Little interest or pleasure in doing things: not at all 2. Feeling down, depressed, or hopeless: not at all 3. Trouble falling or staying asleep, or sleeping too much: not at all 4. Feeling tired or having little energy: not at all 5. Poor appetite or overeating: not at all 6. Feeling bad about yourself - or that you are a failure or have let yourself or your family down: not at all 7. Trouble concentrating on things, such as reading the newspaper or watching television: not at all 8. Moving or speaking so slowly that other people could have noticed. Or the opposite - being so fidgety or restless that you have been moving around a lot more than usual: not at all 9. Thoughts that you would be better off or of hurting yourself in some way: not at all Total score: 0 Depression Screening Interpretation: Negative Depression Screening Done: Yes 97815 - PHQ-9 Billing: Yes Source: Developed by Drs. Jacky Harrison, Carla Baldwin, Geovanny Vinson and colleagues, with an educational walter from [employer] Thrive Questionnaire Date Thrive assessed: 01/11/24 I am a: Patient What is your living situation today?: I have a steady place to live Within the past 12 months, did the food you bought not last and you didn't have the money to get more?: Never true Within the past 12 months, did you worry whether your food would run out before you got money to buy more?: Never true Do you have trouble paying for medicines?: No Do you have trouble getting transportation to medical appointments?: No Do you have trouble paying your heating and electricity bill?: No Do you have trouble taking care of your child, family member or friend?: No Do you have trouble with day-to-day activities such as bathing, preparing meals, shopping, managing finances, etc.?: No Are you currently unemployed and looking for a job?: No Are you interested in more education?: No Please select the resources that you would like help with: None Currently or been in a relationship where the following occur: No concerns reported THRIVE Score: 0 AUDIT C Alcohol Use Questionnaire (AUDIT-C) 1. How often do you have a drink containing alcohol?: Never 3. How often do you have six or more drinks on one occasion?: Never Total Score: 0 ANGELO-7 AMB Questionnaire ANGELO-7 Date ANGELO - 7 assessed: 01/11/24 Feeling nervous, anxious, or on edge: 0 = Not at all Not being able to stop or control worryin = Not at all Worrying too much about different things: 0 = Not at all Trouble relaxin = Not at all Being so restless that it is hard to sit still: 0 = Not at all Becoming easily annoyed or irritable: 0 = Not at all Feeling afraid as if something awful might happen: 0 = Not at all Total ANGELO-7 score (0-4 normal; 5-9 mild; 10-14 moderate; 15-21 severe): 0 Source: Developed by Drs. Jacky Harrison, Carla Baldwin, Geovanny Vinson and colleagues, with an educational walter from [employer] ANGELO-7 Assessment Billing ANGELO-7 Assessment Tool: ANGELO-7 Assessment 54849 Review of Systems Const Denies body aches, Denies fatigue, Denies fever(s), Denies frequent falls, Denies headache(s) and Denies weakness Eyes Details: Regularly sees eye doctor Reports no additional complaints and Denies change in vision ENT Details: Difficulty breathing through his nose occasionally Denies dysphagia, Denies dizziness, Denies facial pain, Denies headache(s), Reports nasal congestion and Denies odynophagia Card Denies chest pain, Denies syncope, Denies irregular heart rhythm, Denies leg edema, Denies lightheadedness and Denies dyspnea Resp Denies cough and Denies dyspnea GI Denies constipation, Denies dysphagia, Denies dyspepsia, Denies diarrhea, Denies nausea, Denies odynophagia and Denies vomiting Details: Occasionally has difficulty initiating urine stream and dribbling. Denies dysuria, Denies urinary frequency, Reports urinary hesitancy, Denies urinary incontinence and Denies urinary urgency Musc Reports back pain (Chronic) and Denies myalgias Skin/Breast Reports system reviewed and no additional complaints, except as documented Neuro Denies dizziness, Denies syncope, Denies frequent falls, Denies headache(s) and Denies weakness Psych Reports no additional complaints Endo Denies fatigue Physical exam (Primary Care) Vital Signs: Last Vital Signs Pulse 66 01/11/24 11:10 BP 140/78 H 01/11/24 11:10 Pulse Ox 97 01/11/24 11:10 Oxygen Delivery Method Room Air 01/11/24 11:10 BMI result Body Mass Index 33.1 Tobacco/Smoking Status: Tobacco use Status Tobacco use date assessed 01/11/24 01/11/24 11:14 Patient Tobacco Use Status Never used Tobacco 01/11/24 11:28 PHQ-9: PHQ-9 Score PHQ-9: Total score 0 01/11/24 11:15 Depression Screening Interpretation: Negative Thrive Assessment: Date of Thrive Assessment Date Thrive assessed 01/11/24 01/11/24 11:14 Currently or been in a relationship where the following occur: No concerns reported Const General: cooperative, healthy appearing, comfortable and no acute distress Orientation/consciousness: patient oriented x3 HENMT Head: Yes normocephalic Ears: hearing grossly normal bilaterally, external ears normal, TM's normal bilaterally and EAC's normal General nose exam: Normal external nose present Face and sinus: Yes normal facial exam and Yes sinuses nontender Mouth: Normal oral and palatal mucosa present and tongue normal Throat: Yes posterior oropharynx normal Eyes General: appearance normal, both eyes and all related structures Conjunctivae: conjunctivae normal Pupils: Equal, round and reactive pupils present EOM: EOMs intact bilaterally and No Nystagmus present Neck Neck: Yes normal visual inspection, Yes full ROM and Yes no lymphadenopathy Chest Chest palpation & inspection: normal inspection of the chest Resp Effort & Inspection: normal respiratory effort Auscultation: clear to auscultation bilaterally, no crackles, no rales, no rhonchi, no wheezes and breath sounds present Cardio Rate: regular rate Rhythm: regular rhythm Peripheral pulses: radial pulses present and dorsalis pedis present GI Inspection: Yes normal to inspection and No Abdominal wall edema Palpation (GI): Soft to palpation, not firm and nontender Auscultation: normal bowel sounds Rectal Exam - Male: Yes deferred General: Yes no CVA tenderness Back/Spine/Pelvis Back: no CVA tenderness Skin General skin exam: no rashes or lesions noted Neuro General: patient oriented x3 Cranial nerves: Yes Equal, round and reactive pupils present, Yes Midline tongue present, Yes Ability to bilaterally elevate shoulders present and No Nystagmus present Gait exam (Neuro): Normal gait present Extrem General: Yes normal to inspection, Yes full ROM, No no pedal edema and No edema Psych Speech and movement: Normal speech and movement present Affect: normal affect Insight: Good insight present (Psych) Judgement: Good judgement present (Psych) Assessment and Plan Assessment & Plan (1) Empty nose syndrome: Code(s): J34.89 - Other specified disorders of nose and nasal sinuses Plan: Patient was previously seen at [facility] and diagnosed with empty nose syndrome after surgical fixation of nasal fracture. Occasionally has intermittent shortness of breath that resolves spontaneously. Does not want a referral to ENT at this time. (2) Hypertension: Code(s): I10 - Essential (primary) hypertension Plan: Patient had borderline blood pressure at today's visit was previously diagnosed with hypertension without medical management. Advised patient to take blood pressures at home 2-3 times per week and if pressures are elevated above 140/90 to reach out so we can schedule a follow up. He does mentioned he does not want medical management of high blood pressure. Continue with diet and exercise. (3) Hepatitis C: Comment: He is undetectable,not contagious Code(s): B19.20 - Unspecified viral hepatitis C without hepatic coma Plan: On last labs hepatitis C level was undetectable we will continue to monitor yearly. (4) Opioid use disorder: Code(s): F11.90 - Opioid use, unspecified, uncomplicated Plan: Patient follows with [facility] on Suboxone. (5) Annual physical exam: Code(s): Z00.00 - Encounter for general adult medical examination without abnormal findings Plan: Routine labs ordered today as well as Cologuard testing. Last colonoscopy was over 10 years ago and was negative for any polyps or concerning findings. Patient is up-to-date on all other routine screenings and vaccinations. Follow up on a yearly basis or earlier pending blood pressure readings and lab results at patient request. Patient has denied the need for a three-month follow up at this time. Plan This note was constructed using voice recognition software. While every effort has been made to ensure accuracy and sliding joint maker, still areas may have been included sometimes these areas may affect the content or meeting of the given symptoms. Total time spent caring for the patient today was 45 minutes. This includes time spent before the visit reviewing the chart, time spent during the visit, and time spent after the visit and documentation. Orders: Orders Comprehensive Met. Panel Today Z00.00 - Encounter for general adult medical examination without abnormal findings Vitamin D 25-OH (D2 and D3) Today Z00.00 - Encounter for general adult medical examination without abnormal findings Complete Blood Count Auto Diff Today Z00.00 - Encounter for general adult medical examination without abnormal findings Free T4 (Free Thyroxine) Today Z00.00 - Encounter for general adult medical examination without abnormal findings TSH reflex Free T4 Today Z00.00 - Encounter for general adult medical examination without abnormal findings Lipid Panel Today Z00.00 - Encounter for general adult medical examination without abnormal findings Vitamin B12 and Folate Today Z00.00 - Encounter for general adult medical examination without abnormal findings Prostate Specific Antigen Scr Today Z00.00 - Encounter for general adult medical examination without abnormal findings Referrals Cologuard Test Z12.11 - Encounter for screening for malignant neoplasm of colon, Z12.12 - Encounter for screening for malignant neoplasm of rectum Coding Level of Care Code New Pt Prev Care >65yr (71814) Diagnoses Empty nose syndrome J34.89 Hypertension I10 Hepatitis C B19.20 Opioid use disorder F11.90 Annual physical exam Z00.00 Additional Codes ANGELO-7 Assessment Billing - ANGELO-7 Assessment Tool: ANGELO-7 Assessment 54629 ([id number])
== END 2024-01-11 11:54 | disposition home or self-care (01) ==
DX: Z00.00 Encounter for general adult medical examination without abnormal findings (principal); J34.89 Other specified disorders of nose and nasal sinuses; I10 Essential (primary) hypertension; B19.20 Unspecified viral hepatitis C without hepatic coma; F11.90 Opioid use, unspecified, uncomplicated
CPT/HCPCS: 99387

== ENCOUNTER 2024-01-16 09:55 | Outpatient (REF) | payer MEDICARE, OTHER, SELFPAY ==
[2024-01-16 10:14] LABS: MANUAL DIFF FLAG NO
[2024-01-16 10:22] LABS: Basophils Absolute Auto 0.1 X10*3/uL (0.0-0.2); Basophils Percent Auto 0.8 % (0-2); Eosinophils Absolute Auto 0.3 X10*3/uL (0.0-0.4); Hematocrit 45.6 % (42.0-52.0); Hemoglobin 15.5 g/dl (14.0-18.0); Imm Gran Abs Auto 0.02 X10*3/uL (0.00-0.03); Imm Gran Pct Auto 0.2 % (0.0-0.4); Lymphocytes Absolute Auto 3.2 X10*3/uL (1.2-4.9); Lymphocytes Percent Auto 38.2 % (20-40); Mean Corpuscular Hemoglobin 29.1 pg (27.0-33.0); Mean Corpuscular Volume 85.7 fL (80.0-98.0); Mean Platelet Volume 8.3 fL (9.4-12.4); Monocytes Absolute Auto 0.7 X10*3/uL (0.1-1.2); Monocytes Percent Auto 8.1 % (2-11); Neutrophils Absolute Auto 4.1 x10*3/uL (2.0-8.3); Neutrophils Percent Auto 48.7 % (45-73); Platelet Count 244 X10*3/uL (160-400); Red Blood Count 5.32 X10*6/uL (4.60-5.80); Red Cell Distribution Width 13.4 % (11.0-16.0); White Blood Count 8.4 X10*3/uL (4.8-10.8)
[2024-01-16 11:09] LABS: Alanine Aminotransferase 22 U/L (0-40); Albumin Level 4.2 g/dL (3.5-5.0); Alkaline Phosphatase 74 U/L (39-117); Anion Gap 12 (12-20); Aspartate Amino Transferase 18 U/L (5-37); Bilirubin Total 0.6 mg/dL (0.0-1.0); Blood Urea Nitrogen 15 mg/dL (9-16); Calcium 9.2 mg/dL (8.4-10.2); Carbon Dioxide 29 mmol/L (22-29); Chloride 104 mmol/L (96-108); Cholesterol 163 mg/dL (<200); Estimated Glomerular Filt Rate > 60; Glucose Random 104 mg/dL (60-115); HDL Cholesterol 34 mg/dL (>40); LDL Cholesterol Calculated 72 mg/dL (<100); Potassium 3.9 mmol/L (3.3-5.1); Sodium 141 mmol/L (135-145); Total Protein 7.1 g/dL (6.5-8.0); Triglycerides 287 mg/dL (<150)
[2024-01-16 11:16] LABS: Free T4 (Free Thyroxine) 1.03 ng/dL (0.71-1.85); TSH reflex Free T4 2.53 uIU/mL (0.32-4.0)
[2024-01-16 11:30] LABS: Prostate Specific Antigen Scr 0.65 ng/mL (<0.05-4.0)
[2024-01-16 11:53] LABS: Vitamin B12 390 pg/mL (200-900)
[2024-01-20 13:23] LABS: Vitamin D 25-OH, D2 <4 ng/mL; Vitamin D 25-OH, D3 15 ng/mL; Vitamin D 25-OH, Total 15 ng/mL (30-100)
== END 2024-01-16 09:56 | disposition home or self-care (01) ==
LOC: HO.LAB 09:55
PROVIDERS: PCP Internal Medicine
DX: Z00.00 Encounter for general adult medical examination without abnormal findings (principal); Z12.5 Encounter for screening for malignant neoplasm of prostate; Z13.6 Encounter for screening for cardiovascular disorders; F11.90 Opioid use, unspecified, uncomplicated
CPT/HCPCS: 36415; 80053; 80061; 82306; 82607; 82746; 84153; 84439; 84443; 85025; 99212

== ENCOUNTER 2024-01-16 10:17 | Outpatient (AMB) | payer MEDICARE, OTHER, SELFPAY ==
--- NOTE | 2024-01-16 10:23 | A.OFFVISCC_ITS ---
Intake Visit Reasons: MAT Visit Allergies ibuprofen Allergy (Intermediate, Verified 01/11/24 11:24) Hives HPI HPI MAT Visit: Details: Patient presents for follow up Currently prescribed Suboxone Reporting ongoing anxiety--does not wish to trial any thing different Recently saw PCP--labwork ordered no other concerns at this time [facility] Medical History (Updated 01/11/24 @ 12:04 by Martha Aparicio PA-C) Hepatitis C Surgical History (Updated 01/11/24 @ 11:26 by Martha Aparicio PA-C) History of appendectomy History of nasal surgery Family History (Updated 01/11/24 @ 11:27 by Martha Aparicio PA-C) Father Heart disease Social History (Updated 01/11/24 @ 11:28 by Martha Aparicio PA-C) Housing: House Alcohol intake: current Alcohol intake frequency: a few times a week Patient Tobacco Use Status: Never used Tobacco Substance Use Type: Marijuana service: No Current occupational status: employed Cognitive needs: No Hearing needs: No Vision needs: No Review of Systems Const Reports as per HPI Physical Exam Const General: cooperative and healthy appearing Nutritional Appearance: average body habitus Orientation/consciousness: patient oriented x3 Limitations: no limitations Neuro General: patient oriented x3 Assessment & Plan Assessment & Plan (1) Opioid use disorder: Code(s): F11.90 - Opioid use, unspecified, uncomplicated Category: Medical Plan: * continue suboxone at current dose * follow up 4 weeks
== END 2024-01-16 10:37 | disposition home or self-care (01) ==
PROVIDERS: Visit Provider Nurse Practitioner Psychiatric/Mental Health
DX: F11.90 Opioid use, unspecified, uncomplicated (principal)
CPT/HCPCS: 99213

== ENCOUNTER 2024-02-13 09:47 | Outpatient (AMB) | payer MEDICARE, OTHER, SELFPAY ==
--- NOTE | 2024-02-13 09:54 | A.OFFVISCC_ITS ---
Intake Visit Reasons: MAT Visit Allergies ibuprofen Allergy (Intermediate, Verified 01/11/24 11:24) Hives HPI HPI MAT Visit: Details: Patient presents for follow up Currently prescribed Suboxone 4mg TID Tolerating current dose. Still working full time babysitter [facility] Medical History (Updated 01/11/24 @ 12:04 by Martha Aparicio PA-C) Hepatitis C Surgical History (Updated 01/11/24 @ 11:26 by Martha Aparicio PA-C) History of appendectomy History of nasal surgery Family History (Updated 01/11/24 @ 11:27 by Martha Aparicio PA-C) Father Heart disease Social History (Updated 01/11/24 @ 11:28 by Martha Aparicio PA-C) Housing: House Alcohol intake: current Alcohol intake frequency: a few times a week Patient Tobacco Use Status: Never used Tobacco Substance Use Type: Marijuana service: No Current occupational status: employed Cognitive needs: No Hearing needs: No Vision needs: No Review of Systems Const Reports as per HPI and Reports no additional complaints Physical Exam Const General: cooperative and healthy appearing Nutritional Appearance: average body habitus Orientation/consciousness: patient oriented x3 Limitations: no limitations Neuro General: patient oriented x3 Assessment & Plan Assessment & Plan (1) Opioid use disorder: Code(s): F11.90 - Opioid use, unspecified, uncomplicated Category: Medical Plan: * continue current dose * follow up 4 weeks
== END 2024-02-13 10:42 | disposition home or self-care (01) ==
PROVIDERS: PCP Internal Medicine; Visit Provider Nurse Practitioner Psychiatric/Mental Health
DX: F11.90 Opioid use, unspecified, uncomplicated (principal)
CPT/HCPCS: 99213

== ENCOUNTER → 2024-02-13 09:47 | Outpatient (BNVA) | payer MEDICARE, OTHER, SELFPAY | PROVIDERS: PCP Internal Medicine; Visit Provider Nurse Practitioner Psychiatric/Mental Health | DX: F11.90 Opioid use, unspecified, uncomplicated (principal); Z51.81 Encounter for therapeutic drug level monitoring | CPT/HCPCS: 99212 ==

== ENCOUNTER 2024-03-12 09:53 | Outpatient (AMB) | payer MEDICARE, OTHER, SELFPAY ==
--- NOTE | 2024-03-13 13:27 | A.OFFVISCC_ITS ---
Intake Visit Reasons: MAT Visit Allergies ibuprofen Allergy (Intermediate, Verified 01/11/24 11:24) Hives HPI HPI MAT Visit: Details: Patient presents for follow up Currently prescribed Suboxone 4mg TID tolerating dose no issues at this time taking hydroxyzine PRN for anxiety PFSH Medical History (Updated 01/11/24 @ 12:04 by Martha Aparicio PA-C) Hepatitis C Surgical History (Updated 01/11/24 @ 11:26 by Martha Aparicio PA-C) History of appendectomy History of nasal surgery Family History (Updated 01/11/24 @ 11:27 by Martha Aparicio PA-C) Father Heart disease Social History (Updated 01/11/24 @ 11:28 by Martha Aparicio PA-C) Housing: House Alcohol intake: current Alcohol intake frequency: a few times a week Patient Tobacco Use Status: Never used Tobacco Substance Use Type: Marijuana service: No Current occupational status: employed Cognitive needs: No Hearing needs: No Vision needs: No Review of Systems Const Reports as per HPI and Reports no additional complaints Physical Exam Const General: cooperative and healthy appearing Nutritional Appearance: average body habitus Orientation/consciousness: patient oriented x3 Limitations: no limitations Neuro General: patient oriented x3 Assessment & Plan Assessment & Plan (1) Opioid use disorder: Code(s): F11.90 - Opioid use, unspecified, uncomplicated Category: Medical Plan: * continue current dose * follow up 6 weeks
== END 2024-03-12 10:20 | disposition home or self-care (01) ==
PROVIDERS: PCP Internal Medicine; Visit Provider Nurse Practitioner Psychiatric/Mental Health
DX: F11.90 Opioid use, unspecified, uncomplicated (principal)
CPT/HCPCS: 99214

== ENCOUNTER → 2024-03-12 09:53 | Outpatient (BNVA) | payer MEDICARE, OTHER, SELFPAY | PROVIDERS: PCP Internal Medicine; Visit Provider Nurse Practitioner Psychiatric/Mental Health | DX: F11.20 Opioid dependence, uncomplicated (principal) | CPT/HCPCS: 99212 ==

== ENCOUNTER 2024-04-15 15:04 | Outpatient (AMB) | payer MEDICARE, OTHER, SELFPAY ==
--- NOTE | 2024-04-15 15:27 | MHC.PC.OV ---
Vital Signs 04/15/24 15:28 Height 5 ft 9 in Weight 210 lb BMI 31.0 BP 130/70 Blood Pressure Location Lt brachial Position Sitting Pulse 90 Pulse Source Pulse Oximeter Pulse Oximetry (%) 97 Oxygen Delivery Method Room Air Intake Visit Reasons: GoutOnBothLegs Intake Note: Patient is here to follow up on Gout in both legs, right leg worse. Request for excuse note for work. Pt decline flu shot today. Housekeeper Manager Required: No Bed Machine Operator: Not Required per policy Accompanied by: Self / Same As Patient Allergies ibuprofen Allergy (Intermediate, Verified 04/16/24 05:37) Hives Medication List - Last Reconciled 04/16/24 by Pritesh Singleton MD buprenorphine-naloxone 4-1 mg (Suboxone) 1 film buccal TID cholecalciferol (vitamin D3) (Vitamin D3) 25 mcg PO DAILY hydroxyzine HCl 25 mg PO BID PRN prednisone 60 mg (3 x 20 mg) PO DAILY Tobacco use date assessed: 04/15/24 Fall risk assessment: No Falls in past year Last assessed Fall Risk: 04/15/24 Dental Screening Dental Screen Date: 01/11/24 HPI Lindsey HPI Details 68-year-old male presents to the office for a sick visit. Patient is complaining of pain in the right great toe for the past few days. He is able to walk, though with a slight limp. He has had a flare of gout a few months ago. [facility] Medical History (Updated 01/11/24 @ 12:04 by Martha Aparicio PA-C) Hepatitis C Surgical History History of appendectomy History of nasal surgery Family History (Updated 04/15/24 @ 15:27 by LATONYA Blum) Father Heart disease Social History Housing: House Alcohol intake: current Alcohol intake frequency: a few times a week Patient Tobacco Use Status: Never used Tobacco e-Cigarette/Vaping Use: Never Used Second Hand Smoke Exposure: No Substance Use Type: Marijuana service: No Current occupational status: employed Cognitive needs: No Hearing needs: No Vision needs: Yes (Glasses) Questionnaire Thrive Questionnaire Date Thrive assessed: 01/11/24 AUDIT C Alcohol Use Questionnaire (AUDIT-C) 2. How many drinks containing alcohol do you have on a typical day when you are drinking?: 1 or 2 3. How often do you have six or more drinks on one occasion?: Never Total Score: 0 ANGELO-7 AMB Questionnaire ANGELO-7 Date ANGELO - 7 assessed: 01/11/24 Source: Developed by Drs. Jacky Harrison, Carla Baldwin, Geovanny Vinson and colleagues, with an educational walter from [employer]. Physical exam (Primary Care) Vital Signs: Last Vital Signs Pulse 90 04/15/24 15:28 BP 130/70 04/15/24 15:28 Pulse Ox 97 04/15/24 15:28 Oxygen Delivery Method Room Air 04/15/24 15:28 BMI result Body Mass Index 31.0 Tobacco/Smoking Status: Tobacco use Status Tobacco use date assessed 04/15/24 04/15/24 15:33 Patient Tobacco Use Status Never used Tobacco 04/15/24 15:33 e-Cigarette/Vaping Use Never Used 04/15/24 15:33 Thrive Assessment: Date of Thrive Assessment Date Thrive assessed 01/11/24 04/15/24 15:33 Extrem Other: Right foot: Tenderness at the base of the MCP joint of the great toe. Pain on flexion. Coding Level of Care Code Est Pt Level 3 (46712) Complex EM visit Add On G2211 Diagnoses Gouty arthritis M10.9 Assessment & Plan Assessment & Plan (1) Gouty arthritis: Code(s): M10.9 - Gout, unspecified Plan: Patient was given a prescription of prednisone to reduce the inflammation. He has had 2 acute flare-ups of gout in the past few months. Patient was advised follow-up with primary care to see if he needs to be on long-term medications to prevent recurrence of gout. Medications: New prednisone 60 mg (3 x 20 mg) PO DAILY 9 tabs 0RF
[2024-04-15 15:28] VITALS: BP 130/70; PULSE 90; O2SAT 97; BMI 31.0
== END 2024-04-15 15:56 | disposition home or self-care (01) ==
LOC: HO.HMCH 15:04
PROVIDERS: PCP Internal Medicine; Visit Provider Internal Medicine
DX: M10.9 Gout, unspecified (principal)

== ENCOUNTER → 2024-04-15 15:04 | Outpatient (BNVA) | payer MEDICARE, OTHER, SELFPAY | PROVIDERS: PCP Internal Medicine; Visit Provider Internal Medicine | DX: M10.9 Gout, unspecified (principal) | CPT/HCPCS: 99212 ==

== ENCOUNTER 2024-05-07 09:52 | Outpatient (AMB) | payer MEDICARE, OTHER, SELFPAY ==
--- NOTE | 2024-05-07 09:57 | A.OFFVISCC_ITS ---
Intake Visit Reasons: MAT Visit Allergies ibuprofen Allergy (Intermediate, Verified 04/16/24 05:37) Hives HPI HPI MAT Visit: Details: Patient presents for follow up Currently prescribed Suboxone 4mg TID Doing well with current dose Denies any side effects Stiil taking hydroxyzine as needed for anxiety Reporting he recently had gout--will be seeing PCP on 05/22 for follow up Review of Systems Const Reports as per HPI and Reports no additional complaints Physical Exam Const General: cooperative, healthy appearing and well groomed Nutritional Appearance: average body habitus Orientation/consciousness: patient oriented x3 Limitations: no limitations Neuro General: patient oriented x3 Psych Speech and movement: Clear speech present Affect: normal affect Attitude: cooperative Thought process: Normal thought process present Thought content: Normal thought content present Insight: Good insight present (Psych) Judgement: Good judgement present (Psych) Assessment & Plan Assessment & Plan (1) Opioid use disorder, mild, in early remission, abuse: Code(s): F11.11 - Opioid abuse, in remission Category: Medical Plan: * continue suboxone at current dose * refilled hydroxyzine * follow up 6 weeks [facility] Medical History (Updated 05/13/24 @ 12:42 by Radha Saldana CNP) Hepatitis C Surgical History History of appendectomy History of nasal surgery Family History (Updated 04/15/24 @ 15:27 by LATONYA Blum) Father Heart disease Social History Housing: House Alcohol intake: current Alcohol intake frequency: a few times a week Patient Tobacco Use Status: Never used Tobacco e-Cigarette/Vaping Use: Never Used Second Hand Smoke Exposure: No Substance Use Type: Marijuana service: No Current occupational status: employed Cognitive needs: No Hearing needs: No Vision needs: Yes (Glasses)
== END 2024-05-07 10:12 | disposition home or self-care (01) ==
PROVIDERS: PCP Internal Medicine; Visit Provider Nurse Practitioner Psychiatric/Mental Health
DX: F11.11 Opioid abuse, in remission (principal)
CPT/HCPCS: 99213

== ENCOUNTER → 2024-05-07 09:52 | Outpatient (BNVA) | payer MEDICARE, OTHER, SELFPAY | PROVIDERS: PCP Internal Medicine; Visit Provider Nurse Practitioner Psychiatric/Mental Health | DX: F11.11 Opioid abuse, in remission (principal) | CPT/HCPCS: 99212 ==

== ENCOUNTER 2024-05-22 09:49 | Outpatient (AMB) | payer MEDICARE, OTHER, SELFPAY ==
--- OUTSIDE RECORDS SUMMARY | 2024-05-22 09:53 | XMS_ITS | Patient Health Record ---
[facility] Address [address] [place] [address] Care Team Providers Care Survey Coordinator Name Role Phone Elizabet Rhodes Primary Care Provider Avery Damon Unavailable [phone] Allergies Allergen (clinical drug ingredient) Drug/Non Drug Allergy documented on EMR Reaction Allergy Type Onset Date Status ciprofloxacin Cipro achillis tendonitis,proble ms walikng ect Drug Allergy Active Levaquin stomach pain,numbness feet/hands ect Drug Allergy Active Shellfish (FN) Shellfish-derived Products anaphylaxis Drug Allergy Active Reason For Referral No Information Medications Medication SIG (Take, Route, Frequency, Duration) Notes Start Date End Date Status amLODIPine Besylate 5 MG 1 tablet Orally Active Krill Oil Active Multi Vitamin Active Immunizations Vaccine Route Administration Date Status Comme nts COVID-19 Moderna Vaccine Unknown 02/13/2021 Administere d 1st 01/16/2021 Social History Tobacco Use: Social History Observation Description Date Details (start date - stop date) Never Smoker NA - NA Tobacco Use/Smoking Question Answer Notes Are you a: nonsmoker Alcohol Screen Question Answer Notes Did you have a drink contain ing alcohol in the past year? Yes How often did you have 6 or more drinks on one occasion in the past year? Less than monthly (1 point) Points 1 Interpretation Negative Tobacco use other than smoking: Question Answer Notes Are you an other tobacco user? No Plan Of Treatment Pending Test Test Name Order Date X ray : Foot, left 3V 07/05/2021 X ray : Foot, right 3V 07/05/2021 Insurance Providers Payer Name Payer Address Payer Phone Subscriber Number Group Number Insured Name Patient Relationship to Insured Coverage Start Date Coverage End Date [facility] ([facility] [address] [place] [id number] Joan Almazan Self - patient is the insured Medical (General) History Medical History History ICD Code Anxiety Back,Hip,and Knee pain High blood pressure Numbness Sciatica Measles Mumps Chicken pox Surgical History Surgery Date(Month/Year) appendectomy 2018
--- NOTE | 2024-05-22 10:06 | A.OFFPC_ITS ---
Vital Signs 05/22/24 10:07 Height 5 ft 9 in Weight 212 lb 8 oz BMI 31.4 BP 132/62 Blood Pressure Location Rt brachial Position Sitting Pulse 75 Pulse Source Pulse Oximeter Pulse Oximetry (%) 95 Oxygen Delivery Method Room Air Intake Visit Reasons: Follow Up Gout Medication Intake Note: Patient is here to follow up on Gout medication. Complaint of difficulty urinating, requesting for prostate check. Atomic Welder Required: No Power Line Installer: Not Required per policy Accompanied by: Self / Same As Patient Allergies ibuprofen Allergy (Intermediate, Verified 05/22/24 11:43) Hives Medication List - Last Reconciled 05/22/24 by Salena Lind PA-C buprenorphine-naloxone 4-1 mg (Suboxone) 1 film buccal TID cholecalciferol (vitamin D3) (Vitamin D3) 25 mcg PO DAILY hydroxyzine HCl 25 mg PO BID PRN Tobacco use date assessed: 05/22/24 Fall risk assessment: No Falls in past year Last assessed Fall Risk: 05/22/24 Dental Screening Dental Screen Date: 01/11/24 [facility] Medical History (Updated 05/22/24 @ 11:47 by Salena Lind PA-C) Influenza vaccine administered Vitamin D deficiency Screening for colon cancer BPH (benign prostatic hyperplasia) Gout Hepatitis C Surgical History History of appendectomy History of nasal surgery Family History Father Heart disease Social History Housing: House Alcohol intake: current Alcohol intake frequency: a few times a week Patient Tobacco Use Status: Never used Tobacco e-Cigarette/Vaping Use: Never Used Second Hand Smoke Exposure: No Substance Use Type: Marijuana service: No Current occupational status: employed Cognitive needs: No Hearing needs: No Vision needs: Yes (Glasses) Questionnaire Thrive Questionnaire Date Thrive assessed: 01/11/24 ANGELO-7 AMB Questionnaire ANGELO-7 Date ANGELO - 7 assessed: 01/11/24 Source: Developed by Drs. Jacky Harrison, Carla Baldwin, Geovanny Vinson and colleagues, with an educational walter from [employer]. Physical exam (Primary Care) Vital Signs: Last Vital Signs Pulse 75 05/22/24 10:07 BP 132/62 05/22/24 10:07 Pulse Ox 95 05/22/24 10:07 Oxygen Delivery Method Room Air 05/22/24 10:07 BMI result Body Mass Index 31.4 Tobacco/Smoking Status: Tobacco use Status Tobacco use date assessed 05/22/24 05/22/24 10:16 Patient Tobacco Use Status Never used Tobacco 05/22/24 10:16 e-Cigarette/Vaping Use Never Used 05/22/24 10:16 Thrive Assessment: Date of Thrive Assessment Date Thrive assessed 01/11/24 05/22/24 10:16 Office Procedures Flu Questionnaire Does the patient have a severe egg allergy?: No Does the patient have severe life threatening allergies?: No Does the patient have a fever or illness today?: No Has the patient ever had Guillain-Milton Syndrome?: No Has the patient ever had any past reaction to a flu shot?: No Immunizations Fluarix Triv [id number] (PF) 45 mcg (15 mcg x 3)/0.5 mL IM syringe Performing Provider: Salena Lind PA-C [facility] Administered by: JEANE Segundo on 05/22/24 10:58 Dose Route Admin Location Dispensed Lot Number Expiration Date [facility] Work Environment Safety Inspector 0.5 mL IM Right Deltoid 0.5 mL [id number] 12/08/24 [id number] 4Cable TV VIS Given Date VIS Provided VIS Publication Date 05/22/24 Single Vaccine 21 Eligibility Eligibility Date Funding Source Not [facility] Eligible 05/22/24 Private Coding Level of Care Code Est Pt Level 4 (22813) Complex EM visit Add On G2211 Diagnoses Gout M10.9 BPH (benign prostatic hyperplasia) N40.0 Screening for colon cancer Z12.11 Vitamin D deficiency E55.9 Influenza vaccine administered Z23 Assessment & Plan Assessment & Plan (1) Gout: Code(s): M10.9 - Gout, unspecified Category: Medical Plan: see below (2) BPH (benign prostatic hyperplasia): Code(s): N40.0 - Benign prostatic hyperplasia without lower urinary tract symptoms Category: Medical Plan: see below (3) Screening for colon cancer: Code(s): Z12.11 - Encounter for screening for malignant neoplasm of colon Category: Medical Plan: see below (4) Vitamin D deficiency: Code(s): E55.9 - Vitamin D deficiency, unspecified Category: Medical Plan: see below (5) Influenza vaccine administered: Code(s): Z23 - Encounter for immunization Category: Medical Plan Plan - For gout, discuss the use of PRN indomethacin or prednsione if flare-ups occur. - Prescribe Flomax to address BPH. - Administer influenza vaccination. - Obtain Cologuard test and follow up based on results. - Continue vitamin D supplementation. - Discuss weight management and exercise routines. - Monitor cholesterol levels. Orders: Orders Influenza [id number] Immunization Today Z23 - Encounter for immunization Scribe Plan - Not visible on output: History of Present Illness The patient is a 68-year-old male presenting for a follow up for his gout. In addition patient would like to discuss changes in urinary habits. The gout has been an ongoing issue since his first flare in February of this year, with a second episode occurring more recently. He reports reducing his sugar intake by 80%, which has helped manage the condition, reducing his flare- ups to about twice a year. Prednisone was previously prescribed and led to a significant reduction of symptoms. The patient is familiar with the pattern of flare-ups, which primarily affect his feet, and has taken steps to avoid known dietary triggers including red meat. Regarding urinary symptoms, the patient describes changes in his urination patterns over the past year. He experiences difficulty initiating urination and sometimes feels incomplete bladder emptying. He does not report hematuria, dysuria, or significant abdominal pain associated with urination. His last prostate-specific antigen (PSA) test was normal. He has been concerned enough about these symptoms to mention seeking a medication to assist with urinary flow. 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. - Exercise: Engages in walking and notes increased physical activity. - Diet: Substantial reduction in sugar consumption, resulting in a 10-pound weight loss. - Health Maintenance: Due for a Cologuard test for colon cancer screening. Review of Systems - Genitourinary: Reports difficulty initiating urination, feels incomplete bladder emptying. Physical Exam Appearance: Alert. Oriented X3. No acute distress. Head: Normal external exam. Normocephalic. Atraumatic. No Avery signs noted. No raccoon eyes noted. Eyes: Pupils are equal, round, and reactive to light. Extraocular movements intact. Conjunctiva and sclera normal. Eyelids normal. Ears: External auditory canal normal. Tympanic membranes normal. Throat: Pharynx normal. Uvula midline. Moist mucous membranes. No trismus noted. No drooling noted. No muffled voice noted. Neck: Normal inspection. Neck supple. Full range of motion. No adenopathy. Thyroid Normal. No meningeal signs. No neck mass noted. Cardiovascular: Normal heart rate and rhythm. Heart sound normal. No murmurs noted. Pulses normal throughout. Respiratory: No respiratory distress. Painless inspiration. Breath sounds normal. No wheezes/rales/rhonchi noted. Chest nontender. No accessory muscle usage noted or decreased air movement noted. Abdomen: Soft and nontender. Bowel sounds normal in all 4 quadrants. No distention noted. No organomegaly noted. No visible injury noted. Back: No costovertebral angle tenderness. Full range of motion noted. Skin: Skin warm and dry. Normal skin color. Normal skin turgor. No rashes/lesio ns/lacerations noted. Extremities: No lower extremity edema. Extremities exhibit normal range of motion. Extremities nontender. Neuro: Oriented X 3. No motor deficit. No sensory deficit. Reflexes normal. Results - Labs: Recent normal PSA, low vitamin D (supplementation ongoing). Plan - For gout, discuss the use of PRN indomethacin or prednsione if flare-ups occur. - Prescribe Flomax to address BPH. - Administer influenza vaccination. - Obtain Cologuard test and follow up based on results. - Continue vitamin D supplementation. - Discuss weight management and exercise routines. - Monitor cholesterol levels. Discussion Notes I discussed the nature of gout, its triggers, and management strategies, including dietary modifications and use of medication during flare-ups. The immediate plan is to manage flare-ups with indomethacin PRN, ensuring timely treatment. We addressed the patient's lower urinary tract symptoms and agreed to initiate Flomax, explaining that improvement should be seen in hesitancy and incomplete bladder emptying symptoms. The patient expressed understanding and agreement with this plan. I confirmed that his last PSA was normal, alleviating immediate concern for prostate issues, but a referral to urology was mentioned for a further evaluation of symptoms if needed. Patient Instructions - Take indomethacin/Prednisone as needed for gout flare-ups. - Start Flomax for urinary symptoms and monitor its effectiveness. - Receive the flu vaccine today. - Send in the new Cologuard kit for colon cancer screening. - Continue taking vitamin D supplements as previously instructed. - Maintain reduced sugar intake and physical activity. - Monitor and report any new or worsening symptoms. Patient was informed and verbally consented to the use of an ambient scribe for clinic note documentation during this visit.
[2024-05-22 10:07] VITALS: BP 132/62; PULSE 75; O2SAT 95; BMI 31.4
== END 2024-05-22 10:56 | disposition home or self-care (01) ==
PROVIDERS: PCP Internal Medicine; Visit Provider Physician Assistant Medical
DX: M10.9 Gout, unspecified (principal); N40.0 Benign prostatic hyperplasia without lower urinary tract symptoms; Z12.11 Encounter for screening for malignant neoplasm of colon; E55.9 Vitamin D deficiency, unspecified; Z23 Encounter for immunization

== ENCOUNTER → 2024-05-22 09:49 | Outpatient (BNVA) | payer MEDICARE, OTHER, SELFPAY | PROVIDERS: PCP Internal Medicine; Visit Provider Physician Assistant Medical | DX: Z23 Encounter for immunization (principal); M10.9 Gout, unspecified; E55.9 Vitamin D deficiency, unspecified | CPT/HCPCS: 90471; 90656; 99212 ==

== ENCOUNTER 2024-08-04 12:51 | Outpatient (AMB) | payer MEDICARE, OTHER, SELFPAY ==
--- NOTE | 2024-08-04 13:06 | MHC.AM.SUB ---
Intake Visit Reasons: MAT Visit Allergies ibuprofen Allergy (Intermediate, Verified 05/22/24 11:43) Hives HPI HPI MAT Visit: Details: Patient presents for follow up Currently prescribed Suboxone 4mg TID (usually taking 10mg daily) Reports challenges with filling script--reports pharmacy does not have medication in stock Otherwise tolerating medication, denies any side effects Still taking hydroxyzine PRN for anxiety. Review of Systems Const Reports as per HPI Psych Reports anxiety Physical Exam Const General: cooperative, healthy appearing and well groomed Nutritional Appearance: average body habitus Orientation/consciousness: patient oriented x3 Limitations: no limitations Neuro General: patient oriented x3 Psych Speech and movement: Clear speech present Affect: normal affect Attitude: cooperative Thought process: Normal thought process present Thought content: Normal thought content present Insight: Good insight present (Psych) Judgement: Good judgement present (Psych) [facility] Medical History (Updated 05/22/24 @ 11:47 by Salena Lind PA-C) Influenza vaccine administered Vitamin D deficiency Screening for colon cancer BPH (benign prostatic hyperplasia) Gout Hepatitis C Surgical History History of appendectomy History of nasal surgery Family History Father Heart disease Social History Housing: House Alcohol intake: current Alcohol intake frequency: a few times a week Patient Tobacco Use Status: Never used Tobacco e-Cigarette/Vaping Use: Never Used Second Hand Smoke Exposure: No Substance Use Type: Marijuana service: No Current occupational status: employed Cognitive needs: No Hearing needs: No Vision needs: Yes (Glasses) Assessment & Plan Assessment & Plan (1) Opioid use disorder, mild, in early remission, abuse: Code(s): F11.11 - Opioid abuse, in remission Category: Medical Plan: continue suboxone at current dose follow up as scheduled aware that next visit will be with Dr. Herrera. Medications: Refilled buprenorphine-naloxone 4-1 mg (Suboxone) 1 film buccal TID 90 ea 1RF hydroxyzine HCl 25 mg PO BID PRN 30 tabs 1RF anxiety
--- OUTSIDE RECORDS SUMMARY | 2024-08-04 14:33 | XMS_ITS | Patient Health Record ---
Author [facility] Address [address] [address] Care Team Providers Care Paper Machine Tender Name Role Phone Elizabet Rhodes Primary Care Provider Avery Damon Unavailable [phone] Allergies Allergen (clinical drug ingredient) Drug/Non Drug [...] Date Coverage End Date [facility] ([facility]) [address] [place] [address] [phone] [id number] Joan Almazan Self - patient is the insured Medical (General) History Medical History History ICD Code Anxiety Back,Hip,and Knee pain High blood pressure Numbness Sciatica Measles Mumps Chicken pox Surgical History Surgery Date(Month/Year) appendectomy 2018
== END 2024-08-04 13:36 | disposition home or self-care (01) ==
PROVIDERS: PCP Internal Medicine; Visit Provider Nurse Practitioner Psychiatric/Mental Health
DX: F11.11 Opioid abuse, in remission (principal)
CPT/HCPCS: 99213

== ENCOUNTER → 2024-08-04 12:51 | Outpatient (BNVA) | payer MEDICARE, OTHER, SELFPAY | PROVIDERS: PCP Internal Medicine; Visit Provider Nurse Practitioner Psychiatric/Mental Health | DX: F11.11 Opioid abuse, in remission (principal); F41.9 Anxiety disorder, unspecified; Z79.899 Other long term (current) drug therapy | CPT/HCPCS: 99212 ==

== ENCOUNTER 2024-09-22 12:55 | Outpatient (AMB) | payer MEDICARE, OTHER, SELFPAY ==
[2024-09-22 13:06] VITALS: BP 138/80; PULSE 70; O2SAT 98; BMI 32.8
--- NOTE | 2024-09-22 13:06 | MHC.OFFVIS ---
Vital Signs 09/22/24 13:06 Height 5 ft 9 in Weight 222 lb BMI 32.8 BP 138/80 Pulse 70 Pulse Oximetry (%) 98 Intake Visit Reasons: MAT Allergies ibuprofen Allergy (Intermediate, Verified 09/22/24 13:07) Hives HPI HPI MAT: Details: He has had h/o opioid use disorder from prescribed opioids and then buying street pills. He now feels well on 4/1 mg SL three times a day. He has some joint pain but gets care He is not using street drugs anymore. [facility] Medical History Influenza vaccine administered Vitamin D deficiency Screening for colon cancer BPH (benign prostatic hyperplasia) Gout Hepatitis C Surgical History History of appendectomy History of nasal surgery Family History Father Heart disease Social History Housing: House Alcohol intake: current Alcohol intake frequency: a few times a week Patient Tobacco Use Status: Never used Tobacco e-Cigarette/Vaping Use: Never Used Second Hand Smoke Exposure: No Substance Use Type: Marijuana service: No Current occupational status: employed Cognitive needs: No Hearing needs: No Vision needs: Yes (Glasses) Review of Systems Const All systems reviewed & are unremarkable except as noted in HPI and below Physical Exam Vital Signs: Last Vital Signs Pulse 70 09/22/24 13:06 BP 138/80 09/22/24 13:06 Pulse Ox 98 09/22/24 13:06 BMI result Body Mass Index 32.8 Const General: cooperative Assessment & Plan Assessment & Plan (1) Opioid use disorder, mild, in early remission, abuse: Comment: He feels dose appropriate Code(s): F11.11 - Opioid abuse, in remission Category: Medical Plan: See in two months. Continue 4/1 mg SL three times a day. Medications: New buprenorphine-naloxone 4-1 mg (Suboxone) place 1 strip/tab under (each) side of tongue 3 film sublingual DAILY 30 days 90 ea 1RF Coding Level of Care Code Est Pt Level 3 (47701) Diagnoses Opioid use disorder, mild, in early remission, abuse F11.11
--- OUTSIDE RECORDS SUMMARY | 2024-09-22 14:48 | XMS_ITS | Patient Health Record ---
Author Organization [facility] Address [address] [place] [address] Care Team Providers Care Feed Research Aide Name Role Phone Elizabet Rhodes Primary Care Provider Avery Damon Unavailable [phone] Allergies Allergen (clinical drug ingredient) Drug/Non Drug [...] Insured Coverage Start Date Coverage End Date [facility] ([facility] [address] [place] [address] [id number] Joan Almazan Self - patient is the insured Medical (General) History Medical History History ICD Code Anxiety Back,Hip,and Knee pain High blood pressure Numbness Sciatica Measles Mumps Chicken pox Surgical History Surgery Date(Month/Year) appendectomy 2018
== END 2024-09-22 13:57 | disposition home or self-care (01) ==
LOC: HO.HCC 12:55
PROVIDERS: PCP Internal Medicine; Visit Provider Internal Medicine
DX: F11.11 Opioid abuse, in remission (principal)
CPT/HCPCS: 99213

== ENCOUNTER → 2024-09-22 12:55 | Outpatient (BNVA) | payer MEDICARE, OTHER, SELFPAY | PROVIDERS: PCP Internal Medicine; Visit Provider Internal Medicine | DX: F11.11 Opioid abuse, in remission (principal) | CPT/HCPCS: 99212 ==

== ENCOUNTER 2024-09-25 09:47 | Outpatient (AMB) | payer MEDICARE, OTHER, SELFPAY ==
--- NOTE | 2024-09-25 10:02 | MHC.PC.OV ---
Vital Signs 09/25/24 10:04 Height 5 ft 9 in Weight 216 lb 8 oz BMI 32.0 BP 140/72 H Blood Pressure Location Lt brachial Position Sitting Pulse 72 Pulse Source Pulse Oximeter Temp 97.7 F Temp Source Temporal Artery Scan Pulse Oximetry (%) 98 Oxygen Delivery Method Room Air Intake Visit Reasons: 4mth f/u - see comments Intake Note: Patient is here to follow up on BPH, HTN. Subassemblies Wirer Required: No Functional Manager: Not Required per policy Accompanied by: Self / Same As Patient Allergies ibuprofen Allergy (Intermediate, Verified 09/25/24 10:29) Hives tamsulosin Adverse Reaction (Intermediate, Verified 09/25/24 10:29) Nausea Tobacco use date assessed: 09/25/24 Fall risk assessment: No Falls in past year Last assessed Fall Risk: 09/25/24 Dental Screening Dental Screen Date: 09/25/24 Did you have a dental visit in the last 12 months?: Yes Did you have a dental problem in the last 6 months where you did not have access to dental care?: No Was dental information given to patient?: Patient has dentist [facility] Medical History Influenza vaccine administered Vitamin D deficiency Screening for colon cancer BPH (benign prostatic hyperplasia) Gout Hepatitis C Surgical History History of appendectomy History of nasal surgery Family History Father Heart disease Social History Housing: House Alcohol intake: current Alcohol intake frequency: a few times a week Patient Tobacco Use Status: Never used Tobacco e-Cigarette/Vaping Use: Never Used Second Hand Smoke Exposure: No Substance Use Type: Marijuana service: No Current occupational status: employed Cognitive needs: No Hearing needs: No Vision needs: Yes (Glasses) Questionnaire PHQ-9 Over the last 2 weeks, how often have you been bothered by any of the following problems? 1. Little interest or pleasure in doing things: not at all 2. Feeling down, depressed, or hopeless: not at all 3. Trouble falling or staying asleep, or sleeping too much: not at all 4. Feeling tired or having little energy: not at all 5. Poor appetite or overeating: not at all 6. Feeling bad about yourself - or that you are a failure or have let yourself or your family down: not at all 7. Trouble concentrating on things, such as reading the newspaper or watching television: not at all 8. Moving or speaking so slowly that other people could have noticed. Or the opposite - being so fidgety or restless that you have been moving around a lot more than usual: not at all 9. Thoughts that you would be better off or of hurting yourself in some way: not at all Total score: 0 Depression Screening Interpretation: Negative Depression Screening Done: Yes Source: Developed by Drs. Jacky Harrison, Carla Baldwin, Geovanny Vinson and colleagues, with an educational walter from [employer]. Thrive Questionnaire Date Thrive assessed: 09/25/24 I am a: Patient What is your living situation today?: I have a steady place to live Within the past 12 months, did the food you bought not last and you didn't have the money to get more?: Never true Within the past 12 months, did you worry whether your food would run out before you got money to buy more?: Never true Do you have trouble paying for medicines?: No Do you have trouble getting transportation to medical appointments?: No Do you have trouble paying your heating and electricity bill?: No Do you have trouble taking care of your child, family member or friend?: No Do you have trouble with day-to-day activities such as bathing, preparing meals, shopping, managing finances, etc.?: No Are you currently unemployed and looking for a job?: No Are you interested in more education?: No Please select the resources that you would like help with: None Currently or been in a relationship where the following occur: No concerns reported THRIVE Score: 0 AUDIT C Alcohol Use Questionnaire (AUDIT-C) 2. How many drinks containing alcohol do you have on a typical day when you are drinking?: 1 or 2 3. How often do you have six or more drinks on one occasion?: Never Total Score: 0 ANGELO-7 AMB Questionnaire ANGELO-7 Date ANGELO - 7 assessed: 04/17/25 Feeling nervous, anxious, or on edge: 0 = Not at all Not being able to stop or control worryin = Not at all Worrying too much about different things: 0 = Not at all Trouble relaxin = Not at all Being so restless that it is hard to sit still: 0 = Not at all Becoming easily annoyed or irritable: 0 = Not at all Feeling afraid as if something awful might happen: 0 = Not at all Total ANGELO-7 score (0-4 normal; 5-9 mild; 10-14 moderate; 15-21 severe): 0 Source: Developed by Drs. Jacky Harrison, Carla Baldwin, Geovanny Vinson and colleagues, with an educational walter from [employer]. Physical exam (Primary Care) Vital Signs: Last Vital Signs Temp 97.7 F 09/25/24 10:04 Pulse 72 09/25/24 10:04 BP 140/72 H 09/25/24 10:04 Pulse Ox 98 09/25/24 10:04 Oxygen Delivery Method Room Air 09/25/24 10:04 BMI result Body Mass Index 32.0 Tobacco/Smoking Status: Tobacco use Status Tobacco use date assessed 09/25/24 09/25/24 10:30 Patient Tobacco Use Status Never used Tobacco 09/25/24 10:30 e-Cigarette/Vaping Use Never Used 09/25/24 10:30 PHQ-9: PHQ-9 Score PHQ-9: Total score 0 09/25/24 10:30 Depression Screening Interpretation: Negative Thrive Assessment: Date of Thrive Assessment Date Thrive assessed 09/25/24 09/25/24 10:30 Currently or been in a relationship where the following occur: No concerns reported Coding Level of Care Code Est Pt Level 4 (13905) Complex EM visit Add On G2211 Diagnoses Hypertension I10 Opioid use disorder, mild, in early remission, abuse F11.11 Assessment & Plan Assessment & Plan (1) Hypertension: Code(s): I10 - Essential (primary) hypertension Category: Medical Plan: BP in range. Continue current medications (2) Opioid use disorder, mild, in early remission, abuse: Code(s): F11.11 - Opioid abuse, in remission Category: Medical Plan: Condition is stable. Plan History of Present Illness The patient is a 69-year-old male presenting with adverse effects linked to Tamsulosin use and concerns about colorectal cancer screening. The patient experienced urinary incontinence and hoarseness after a few weeks of taking Tamsulosin, leading to discontinuation due to side effects. Despite this, he noticed a mild improvement in his urinary issues with dietary changes, such as reducing fructose and sugar intake. He opted to manage the condition without medication due to preferences against the side effects. Additionally, a discussion regarding colorectal cancer screening was conducted, as the patient has not yet completed a Cologuard test. Although he has the Cologuard kit available at home, he has not yet performed the test and recognized the importance of completing it to facilitate cancer screening. Social History - No specific social determinants of health discussed. Review of Systems - Genitourinary: Reports urinary incontinence when taking Tamsulosin. - Voice: Reports hoarseness when taking Tamsulosin. Physical Exam General: Cooperative and healthy appearing Nutritional Appearance: Well nourished Orientation/consciousness: Patient oriented x3 Limitations: No limitations Head: Normal to inspection General: Appearance normal, both eyes and all related structures Neck: Normal visual inspection Chest: Normal palpation of entire chest wall Respiratory: Normal respiratory effort Neurology: Patient oriented x3 Results - Labs: Blood work last completed in January of last year, recommended follow-up labs are pending. - Tests: Cologuard test is at home but not yet completed. Plan The patient will discontinue Tamsulosin due to intolerable side effects including urinary incontinence and hoarseness. To assist in managing his condition, continued adjustment of dietary fructose and sugar intake is advised, given its previously noted benefits. Completing the Cologuard test remains a priority for colorectal cancer screening, highlighting the importance of early detection. Updated blood work will be arranged to reassess the patient's current health baseline, given previous labs were from the prior year. A follow-up appointment is scheduled for six months to evaluate ongoing health and management. Patient was informed and verbally consented to the use of an ambient scribe for clinic note documentation during this visit. Discussion Notes During the visit, I discussed the adverse effects of Tamsulosin and the decision to discontinue its use due to significant side effects such as urinary incontinence and hoarseness. The patient expressed relief upon stopping the medication and reported some improvement with dietary changes. I emphasized the importance of completing the Cologuard test to facilitate early detection of colorectal cancer, and the patient expressed understanding and agreement. Blood work is planned to ensure updated health data. We agreed on a follow-up in six months for ongoing evaluation and management. Patient Instructions - Discontinue Tamsulosin. - Keep reducing fructose and sugar intake to help manage urinary issues. - Complete the Cologuard test at home as soon as possible for colorectal cancer screening. - Go for blood work at the hospital across the street, ensuring to fast after midnight. - Follow up in six months or sooner if there are any new concerns. Orders: Orders Lipid Panel 09/25/24.11 - Opioid abuse, in remission, I10 - Essential (primary) hypertension Liver Panel 09/25/24.11 - Opioid abuse, in remission, I10 - Essential (primary) hypertension UA and rflx microscopic 09/25/24.11 - Opioid abuse, in remission, I10 - Essential (primary) hypertension Basic Metabolic Panel 09/25/24.11 - Opioid abuse, in remission, I10 - Essential (primary) hypertension Complete Blood Count no Diff 09/25/24.11 - Opioid abuse, in remission, I10 - Essential (primary) hypertension Thyroid Stimulating Hormone 09/25/24.11 - Opioid abuse, in remission, I10 - Essential (primary) hypertension
[2024-09-25 10:04] VITALS: BP 140/72; PULSE 72; TEMP 36.5; O2SAT 98; BMI 32.0
--- OUTSIDE RECORDS SUMMARY | 2024-09-25 11:17 | XMS_ITS | Patient Health Record ---
[facility] [address] [place] [address] Care Team Providers Care Intranet Specialist Name Role Phone Elizabet Rhodes Primary Care Provider Avery Damon Unavailable [phone] Allergies Allergen (clinical drug ingredient) Drug/Non Drug [...] Insured Coverage Start Date Coverage End Date [facility] ([facility]) [address] [place] [address] [id number] Joan Almazan Self - patient is the insured Medical (General) History Medical History History ICD Code Anxiety Back,Hip,and Knee pain High blood pressure Numbness Sciatica Measles Mumps Chicken pox Surgical History Surgery Date(Month/Year) appendectomy 2018
== END 2024-09-25 10:52 | disposition home or self-care (01) ==
LOC: HO.HMCH 09:47
PROVIDERS: PCP Internal Medicine; Visit Provider Internal Medicine
DX: I10 Essential (primary) hypertension (principal); F11.11 Opioid abuse, in remission

== ENCOUNTER → 2024-09-25 09:47 | Outpatient (BNVA) | payer MEDICARE, OTHER, SELFPAY | PROVIDERS: PCP Internal Medicine; Visit Provider Internal Medicine | DX: I10 Essential (primary) hypertension (principal); F11.11 Opioid abuse, in remission | CPT/HCPCS: 96127; 99212 ==

== ENCOUNTER 2024-10-07 08:43 | Outpatient (REF) | payer MEDICARE, OTHER, SELFPAY ==
--- OUTSIDE RECORDS SUMMARY | 2024-10-07 09:11 | XMS_ITS | Patient Health Record ---
[facility] Address [address] [place] [address] Care Team Providers Care Director Part Name Role Phone Elizabet Rhodes Primary Care Provider Avery Damon Unavailable [phone] Allergies Allergen (clinical drug ingredient) Drug/Non Drug [...] Insured Coverage Start Date Coverage End Date [facility] [address] [place] [address] [id number] Joan Almazan Self - patient is the insured Medical (General) History Medical History History ICD Code Anxiety Back,Hip,and Knee pain High blood pressure Numbness Sciatica Measles Mumps Chicken pox Surgical History Surgery Date(Month/Year) appendectomy 2018
[2024-10-07 09:45] LABS: Hematocrit 46.9 % (42.0-52.0); Mean Corpuscular HGB Conc 34.1 g/dl (31.0-36.0); Mean Corpuscular Hemoglobin 29.3 pg (27.0-33.0); Mean Corpuscular Volume 85.7 fL (80.0-98.0); Mean Platelet Volume 8.6 fL (9.4-12.4); Platelet Count 258 X10*3/uL (160-400); Red Blood Count 5.47 X10*6/uL (4.60-5.80); Red Cell Distribution Width 13.6 % (11.0-16.0); White Blood Count 8.7 X10*3/uL (4.8-10.8)
[2024-10-07 10:32] LABS: Alanine Aminotransferase 19 U/L (0-40); Alkaline Phosphatase 80 U/L (39-117); Anion Gap 11 (12-20); Aspartate Amino Transferase 21 U/L (5-37); Bilirubin Direct 0.2 mg/dL (0.0-0.5); Bilirubin Total 0.7 mg/dL (0.0-1.0); Blood Urea Nitrogen 10 mg/dL (9-16); Calcium 8.6 mg/dL (8.4-10.2); Carbon Dioxide 27 mmol/L (22-29); Chloride 107 mmol/L (96-108); Cholesterol 143 mg/dL (<200); Estimated Glomerular Filt Rate > 60; Glucose Random 99 mg/dL (60-115); HDL Cholesterol 35 mg/dL (>40); LDL Cholesterol Calculated 65 mg/dL (<100); Potassium 3.7 mmol/L (3.3-5.1); Sodium 141 mmol/L (135-145); Total Protein 6.8 g/dL (6.5-8.0); Triglycerides 215 mg/dL (<150)
[2024-10-07 10:35] LABS: Thyroid Stimulating Hormone 1.43 uIU/mL (0.32-4.0)
== END 2024-10-07 08:44 | disposition home or self-care (01) ==
LOC: HO.LAB 08:43
PROVIDERS: PCP Internal Medicine; Visit Provider Internal Medicine
DX: I10 Essential (primary) hypertension (principal); F11.11 Opioid abuse, in remission
CPT/HCPCS: 36415; 80048; 80061; 80076; 84443; 85027

== ENCOUNTER 2024-11-17 10:36 | Outpatient (AMB) | payer MEDICARE, OTHER, SELFPAY ==
--- NOTE | 2024-11-17 10:54 | A.OFFVIS_ITS ---
Vital Signs 11/17/24 11:09 Height 5 ft 9 in Weight 223 lb BMI 32.9 Pulse 90 Pulse Source Pulse Oximeter Pulse Oximetry (%) 99 Oxygen Delivery Method Room Air Intake Visit Reasons: MAT Allergies ibuprofen Allergy (Intermediate, Verified 11/17/24 11:10) Hives tamsulosin Adverse Reaction (Intermediate, Verified 11/17/24 11:10) Nausea HPI HPI MAT: Details: He has been doing well. He has no complaints. [facility] Medical History Influenza vaccine administered Vitamin D deficiency Screening for colon cancer BPH (benign prostatic hyperplasia) Gout Hepatitis C Surgical History History of appendectomy History of nasal surgery Family History Father Heart disease Social History Housing: House Alcohol intake: current Alcohol intake frequency: a few times a week Patient Tobacco Use Status: Never used Tobacco e-Cigarette/Vaping Use: Never Used Second Hand Smoke Exposure: No Substance Use Type: Marijuana service: No Current occupational status: employed Cognitive needs: No Hearing needs: No Vision needs: Yes (Glasses) Review of Systems Const All systems reviewed & are unremarkable except as noted in HPI and below Physical Exam Vital Signs: Last Vital Signs Pulse 90 11/17/24 11:09 Pulse Ox 99 11/17/24 11:09 Oxygen Delivery Method Room Air 11/17/24 11:09 BMI result Body Mass Index 32.9 Const General: cooperative Assessment & Plan Assessment & Plan (1) Opioid use disorder, mild, in early remission, abuse: Code(s): F11.11 - Opioid abuse, in remission Category: Medical Plan: na Medications: New buprenorphine-naloxone 4-1 mg (Suboxone) 1 film sublingual TID 90 ea 1RF pain 30 days hydroxyzine HCl 25 mg PO BID PRN 60 tabs 5RF itching 30 days buprenorphine-naloxone 4-1 mg (Suboxone) not to exceed 8 mg buprenorphine on Day 1 of therapy 1 film sublingual TID 90 ea 1RF pain 30 days Coding Level of Care Code Est Pt Level 3 (70266) Diagnoses Opioid use disorder, mild, in early remission, abuse F11.11
[2024-11-17 11:09] VITALS: PULSE 90; O2SAT 99; BMI 32.9
--- OUTSIDE RECORDS SUMMARY | 2024-11-17 11:54 | XMS_ITS | Patient Health Record ---
[facility] Address [address] [place] [address] Care Team Providers Care Privacy Officer Name Role Phone Elizabet Rhodes Primary Care Provider Avery Damon Unavailable [phone] Allergies Allergen (clinical drug ingredient) Drug/Non Drug [...] Insured Coverage Start Date Coverage End Date [facility] ([facility] [address] [place] [id number] Joan Almazan Self - patient is the insured Medical (General) History Medical History History ICD Code Anxiety Back,Hip,and Knee pain High blood pressure Numbness Sciatica Measles Mumps Chicken pox Surgical History Surgery Date(Month/Year) appendectomy 2018
== END 2024-11-17 11:37 | disposition home or self-care (01) ==
LOC: HO.HCC 10:36
PROVIDERS: PCP Internal Medicine; Visit Provider Internal Medicine
DX: F11.11 Opioid abuse, in remission (principal)
CPT/HCPCS: 99213

== ENCOUNTER → 2024-11-17 10:36 | Outpatient (BNVA) | payer MEDICARE, OTHER, SELFPAY | PROVIDERS: PCP Internal Medicine; Visit Provider Internal Medicine | DX: F11.11 Opioid abuse, in remission (principal) | CPT/HCPCS: 99212 ==

== ENCOUNTER 2025-01-12 10:56 | Outpatient (AMB) | payer MEDICARE, OTHER, SELFPAY ==
--- NOTE | 2025-01-12 10:59 | MHC.OFFVIS ---
Vital Signs 01/12/25 11:00 Height 5 ft 9 in Weight 233 lb BMI 34.4 BP 138/78 Pulse 78 Pulse Oximetry (%) 99 Intake Visit Reasons: MAT Allergies ibuprofen Allergy (Intermediate, Verified 01/12/25 11:01) Hives tamsulosin Adverse Reaction (Intermediate, Verified 01/12/25 11:01) Nausea HPI HPI MAT: Details: He has no complaints.He is not using opioids. [facility] Medical History Influenza vaccine administered Vitamin D deficiency Screening for colon cancer BPH (benign prostatic hyperplasia) Gout Hepatitis C Surgical History History of appendectomy History of nasal surgery Family History Father Heart disease Social History Housing: House Alcohol intake: current Alcohol intake frequency: a few times a week Patient Tobacco Use Status: Never used Tobacco e-Cigarette/Vaping Use: Never Used Second Hand Smoke Exposure: No Substance Use Type: Marijuana service: No Current occupational status: employed Cognitive needs: No Hearing needs: No Vision needs: Yes (Glasses) Review of Systems Const All systems reviewed & are unremarkable except as noted in HPI and below Physical Exam Vital Signs: Last Vital Signs Pulse 78 01/12/25 11:00 BP 138/78 01/12/25 11:00 Pulse Ox 99 01/12/25 11:00 BMI result Body Mass Index 34.4 Assessment & Plan Assessment & Plan (1) Opioid use disorder, mild, in early remission, abuse: Comment: He is doing well. Code(s): F11.11 - Opioid abuse, in remission Category: Medical Plan: Continue current dose Suboxone Medications: New buprenorphine-naloxone 4-1 mg (Suboxone) place 1 strip/tab under (each) side of tongue 1 film sublingual TID 90 ea 2RF 30 days Coding Level of Care Code Est Pt Level 3 (42181) Diagnoses Opioid use disorder, mild, in early remission, abuse F11.11
[2025-01-12 11:00] VITALS: BP 138/78; PULSE 78; O2SAT 99; BMI 34.4
--- OUTSIDE RECORDS SUMMARY | 2025-01-12 11:55 | XMS_ITS | Patient Health Record ---
Author Organization [facility] Address [address] [place] [address] Care Team Providers Care Educational Technician Name Role Phone Elizabet Rhodes Primary Care Provider Avery Damon Unavailable [phone] Allergies Allergen (clinical drug ingredient) Drug/Non Drug [...] Insured Coverage Start Date Coverage End Date [facility] ([facility]) [address] [place] [address] [phone] [id number] Joan Almazan Self - patient is the insured Medical (General) History Medical History History ICD Code Anxiety Back,Hip,and Knee pain High blood pressure Numbness Sciatica Measles Mumps Chicken pox Surgical History Surgery Date(Month/Year) appendectomy 2018
== END 2025-01-12 11:24 | disposition home or self-care (01) ==
PROVIDERS: PCP Internal Medicine; Visit Provider Internal Medicine
DX: F11.11 Opioid abuse, in remission (principal)
CPT/HCPCS: 99213

== ENCOUNTER → 2025-01-12 10:56 | Outpatient (BNVA) | payer MEDICARE, OTHER, SELFPAY | PROVIDERS: PCP Internal Medicine; Visit Provider Internal Medicine | DX: F11.21 Opioid dependence, in remission (principal) | CPT/HCPCS: 99212 ==

== ENCOUNTER 2025-04-02 10:01 | Outpatient (AMB) | payer MEDICARE, OTHER, SELFPAY ==
--- NOTE | 2025-04-02 10:07 | MHC.PC.OV ---
Vital Signs 04/02/25 10:08 Height 5 ft 9 in Weight 226 lb 6 oz BMI 33.4 BP 144/70 H Blood Pressure Location Lt brachial Position Sitting Pulse 70 Pulse Source Pulse Oximeter Temp 97.1 F Temp Source Temporal Artery Scan Pulse Oximetry (%) 98 Oxygen Delivery Method Room Air Intake Visit Reasons: 6 month f/u - see comments Intake Note: Patient is here to follow up on BPH, HTN. Golf Club Manager Required: No Box Blank Machine Feeder: Not Required per policy Accompanied by: Self / Same As Patient Allergies ibuprofen Allergy (Intermediate, Verified 01/12/25 11:01) Hives tamsulosin Adverse Reaction (Intermediate, Verified 01/12/25 11:01) Nausea Tobacco use date assessed: 04/02/25 Fall risk assessment: No Falls in past year Last assessed Fall Risk: 04/02/25 Dental Screening Dental Screen Date: 09/25/24 [facility] Medical History (Updated 01/16/25 @ 15:23 by Susan Herrera MD) Influenza vaccine administered Vitamin D deficiency Screening for colon cancer BPH (benign prostatic hyperplasia) Gout Hepatitis C Surgical History (Updated 04/02/25 @ 10:11 by LATONYA Blum) History of right cataract surgery History of appendectomy History of nasal surgery Family History Father Heart disease Social History Housing: House Alcohol intake: current Alcohol intake frequency: a few times a week Patient Tobacco Use Status: Never used Tobacco e-Cigarette/Vaping Use: Never Used Second Hand Smoke Exposure: No Substance Use Type: Marijuana service: No Current occupational status: employed Cognitive needs: No Hearing needs: No Vision needs: Yes (Glasses) Questionnaire PHQ-9 Over the last 2 weeks, how often have you been bothered by any of the following problems? 1. Little interest or pleasure in doing things: not at all 2. Feeling down, depressed, or hopeless: not at all 3. Trouble falling or staying asleep, or sleeping too much: not at all 4. Feeling tired or having little energy: not at all 5. Poor appetite or overeating: not at all 6. Feeling bad about yourself - or that you are a failure or have let yourself or your family down: not at all 7. Trouble concentrating on things, such as reading the newspaper or watching television: not at all 8. Moving or speaking so slowly that other people could have noticed. Or the opposite - being so fidgety or restless that you have been moving around a lot more than usual: not at all 9. Thoughts that you would be better off or of hurting yourself in some way: not at all Total score: 0 Depression Screening Interpretation: Negative Depression Screening Done: Yes Source: Developed by Drs. Jacky Harrison, Carla Baldwin, Geovanny Vinson and colleagues, with an educational walter from [employer]. Thrive Questionnaire Date Thrive assessed: 09/25/24 I am a: Patient What is your living situation today?: I have a steady place to live Within the past 12 months, did the food you bought not last and you didn't have the money to get more?: Never true Within the past 12 months, did you worry whether your food would run out before you got money to buy more?: Never true Do you have trouble paying for medicines?: No Do you have trouble getting transportation to medical appointments?: No Do you have trouble paying your heating and electricity bill?: No Do you have trouble taking care of your child, family member or friend?: I choose not to answer this question Do you have trouble with day-to-day activities such as bathing, preparing meals, shopping, managing finances, etc.?: No Are you currently unemployed and looking for a job?: No Are you interested in more education?: No Please select the resources that you would like help with: None Currently or been in a relationship where the following occur: No concerns reported THRIVE Score: 0 AUDIT C Alcohol Use Questionnaire (AUDIT-C) 1. How often do you have a drink containing alcohol?: 2-4 times a month Total Score: 2 ANGELO-7 AMB Questionnaire ANGELO-7 Date ANGELO - 7 assessed: 09/25/24 Feeling nervous, anxious, or on edge: 1 = Several days Not being able to stop or control worryin = Several days Worrying too much about different things: 1 = Several days Trouble relaxin = Several days Being so restless that it is hard to sit still: 1 = Several days Becoming easily annoyed or irritable: 0 = Not at all Feeling afraid as if something awful might happen: 1 = Several days Total ANGELO-7 score (0-4 normal; 5-9 mild; 10-14 moderate; 15-21 severe): 6 Source: Developed by Drs. Jacky Harrison, Carla Baldwin, Geovanny Vinson and colleagues, with an educational walter from [employer]. Physical exam (Primary Care) Vital Signs: Last Vital Signs Temp 97.1 F 04/02/25 10:08 Pulse 70 04/02/25 10:08 BP 144/70 H 04/02/25 10:08 Pulse Ox 98 04/02/25 10:08 Oxygen Delivery Method Room Air 04/02/25 10:08 BMI result Body Mass Index 33.4 Tobacco/Smoking Status: Tobacco use Status Tobacco use date assessed 04/02/25 04/02/25 10:12 Patient Tobacco Use Status Never used Tobacco 04/02/25 10:12 e-Cigarette/Vaping Use Never Used 04/02/25 10:12 PHQ-9: PHQ-9 Score PHQ-9: Total score 0 04/02/25 10:12 Depression Screening Interpretation: Negative Thrive Assessment: Date of Thrive Assessment Date Thrive assessed 09/25/24 04/02/25 10:12 Currently or been in a relationship where the following occur: No concerns reported Coding Level of Care Code Est Pt Level 4 (57518) Complex EM visit Add On G2211 Diagnoses Opioid use disorder, mild, in early remission, abuse F11.11 Hypertension I10 Assessment & Plan Assessment & Plan (1) Opioid use disorder, mild, in early remission, abuse: Comment: He is doing well. Code(s): F11.11 - Opioid abuse, in remission Category: Medical Plan: On Suboxone (2) Hypertension: Code(s): I10 - Essential (primary) hypertension Category: Medical Plan: History of Present Illness - The patient is a 69-year-old male presenting with routine blood work and urinalysis, and concerns about potential infection and ear growth. - Cataract: The patient reports having been diagnosed with a cataract and plans to have it addressed. - Possible ear growth: The patient has noticed something growing in his left ear and has been referred to a check writer salesperson for evaluation and removal. - Preventative care: The patient has undergone Cologuard testing twice, with unclear results, and may require a colonoscopy for further evaluation. 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 Review of Systems - Gastrointestinal: Denies abdominal pain. Physical Exam General: Cooperative and healthy appearing Nutritional Appearance: Well nourished Orientation/consciousness: Patient oriented x3 Limitations: No limitations Head: Normal to inspection General: Appearance normal, both eyes and all related structures Neck: Normal visual inspection Chest: Normal palpation of entire chest wall Respiratory: Normal respiratory effort Neurology: Patient oriented x3 Results Plan - Order routine blood work and urinalysis to check for potential infection. - Refer to a check writer salesperson for evaluation and removal of the ear growth. - Follow up on Cologuard results and consider scheduling a colonoscopy if necessary. Discussion Notes I discussed with the patient the need for routine blood work and urinalysis to check for any potential infections. We also talked about the referral to a check writer salesperson for the ear growth and the importance of following up on the Cologuard results, potentially leading to a colonoscopy. Patient Instructions - Complete the blood work and urinalysis as ordered. - Attend the dermatology appointment for ear growth evaluation. - Follow up on Cologuard results and prepare for a possible colonoscopy. Orders: Orders Basic Metabolic Panel Today F11.11 - Opioid abuse, in remission, I10 - Essential (primary) hypertension Complete Blood Count no Diff Today F11.11 - Opioid abuse, in remission, I10 - Essential (primary) hypertension Lipid Panel Today F11.11 - Opioid abuse, in remission, I10 - Essential (primary) hypertension Thyroid Stimulating Hormone Today F11.11 - Opioid abuse, in remission, I10 - Essential (primary) hypertension Prostate Specific Antigen Scr Today F11.11 - Opioid abuse, in remission, I10 - Essential (primary) hypertension Liver Panel Today F11.11 - Opioid abuse, in remission, I10 - Essential (primary) hypertension UA and rflx microscopic Today F11.11 - Opioid abuse, in remission, I10 - Essential (primary) hypertension
[2025-04-02 10:08] VITALS: BP 144/70; PULSE 70; TEMP 36.2; O2SAT 98; BMI 33.4
== END 2025-04-02 10:47 | disposition home or self-care (01) ==
LOC: HO.HMCH 10:02
PROVIDERS: PCP Internal Medicine; Visit Provider Internal Medicine
DX: F11.11 Opioid abuse, in remission (principal); I10 Essential (primary) hypertension

== ENCOUNTER → 2025-04-02 10:01 | Outpatient (BNVA) | payer MEDICARE, OTHER, SELFPAY | PROVIDERS: PCP Internal Medicine; Visit Provider Internal Medicine | DX: I10 Essential (primary) hypertension (principal); F11.11 Opioid abuse, in remission | CPT/HCPCS: 99212 ==

== ENCOUNTER 2025-04-08 11:11 | Outpatient (REF) | payer MEDICARE, OTHER, SELFPAY ==
[2025-04-08 11:54] LABS: Hematocrit 47.7 % (42.0-52.0); Hemoglobin 16.0 g/dl (14.0-18.0); Mean Corpuscular HGB Conc 33.5 g/dl (31.0-36.0); Mean Corpuscular Hemoglobin 28.8 pg (27.0-33.0); Mean Corpuscular Volume 85.9 fL (80.0-98.0); NRBC Abs Auto 0.000 X10*3/uL (0.0-0.012); NRBC Pct Auto 0.0 /100WBC (0.0-0.2); Platelet Count 267 X10*3/uL (160-400); Red Blood Count 5.55 X10*6/uL (4.60-5.80); White Blood Count 8.0 X10*3/uL (4.8-10.8)
[2025-04-08 12:24] LABS: Appearance Urine Clear; Glucose Urine UA Negative (Negative); PH 7.0 (5.0-9.0); Specific Gravity - Urine <= 1.005 (1.005-1.025)
[2025-04-08 12:43] LABS: Alanine Aminotransferase 18 U/L (0-40); Albumin Level 4.4 g/dL (3.5-5.0); Alkaline Phosphatase 79 U/L (39-117); Anion Gap 11 (12-20); Aspartate Amino Transferase 25 U/L (5-37); Blood Urea Nitrogen 11 mg/dL (9-16); Calcium 8.8 mg/dL (8.4-10.2); Carbon Dioxide 30 mmol/L (22-29); Chloride 106 mmol/L (96-108); Cholesterol 160 mg/dL (<200); Estimated Glomerular Filt Rate > 60; HDL Cholesterol 31 mg/dL (>40); Potassium 4.2 mmol/L (3.3-5.1); Sodium 143 mmol/L (135-145); Total Protein 7.4 g/dL (6.5-8.0); Triglycerides 274 mg/dL (<150)
[2025-04-08 12:49] LABS: Thyroid Stimulating Hormone 1.35 uIU/mL (0.32-4.0)
--- OUTSIDE RECORDS SUMMARY | 2025-04-08 14:09 | XMS_ITS | Patient Health Record ---
[facility] Address [address] [place] [address] Care Team Providers Care Hydraulic Punch Press Operator Name Role Phone Elizabet Rhodes Primary Care Provider Avery Damon Unavailable [phone] Allergies Allergen (clinical drug ingredient) Drug/Non Drug [...] Insured Coverage Start Date Coverage End Date [facility] ([facility]) [address] [place] [id number] Joan Almazan Self - patient is the insured Medical (General) History Medical History History ICD Code Anxiety Back,Hip,and Knee pain High blood pressure Numbness Sciatica Measles Mumps Chicken pox Surgical History Surgery Date(Month/Year) appendectomy 2018
== END 2025-04-08 11:12 | disposition home or self-care (01) ==
LOC: HO.LAB 11:11
PROVIDERS: PCP Internal Medicine; Visit Provider Internal Medicine
DX: Z12.5 Encounter for screening for malignant neoplasm of prostate (principal); I10 Essential (primary) hypertension; F11.11 Opioid abuse, in remission
CPT/HCPCS: 36415; 80048; 80061; 80076; 81003; 84153; 84443; 85027

== ENCOUNTER 2025-04-13 10:00 | Outpatient (AMB) | payer MEDICARE, OTHER, SELFPAY ==
[2025-04-13 10:07] VITALS: BP 144/88; PULSE 88; O2SAT 99
--- NOTE | 2025-04-13 10:07 | A.OFFVIS_ITS ---
Vital Signs 04/13/25 10:07 BP 144/88 H Pulse 88 Pulse Oximetry (%) 99 Intake Visit Reasons: MAT Allergies ibuprofen Allergy (Intermediate, Verified 04/13/25 10:08) Hives tamsulosin Adverse Reaction (Intermediate, Verified 04/13/25 10:08) Nausea HPI Comments Details: History of Present Illness The patient is a 69-year-old male presenting with opioid use disorder. Currently, he is maintained on a regimen of buprenorphine/naloxone at a 4/1 mg dosage, administered thrice daily. His progress under this treatment has been positive, as evidenced by the absence of psychological symptoms such as depression and anxiety. Notably, the patient is contemplating a tapering plan after the holiday season, with the aim to reduce reliance on his current medication. He has mentioned an interest in exploring long-acting injectable options like Sublocade or Brixadi during this period of tapering, demonstrating an active role in managing his condition. Throughout the treatment, the patient reports no adverse effects such as constipation, underscoring the tolerability of his current medication plan. Review of Systems - Psychiatric: Denies depression or anxiety. - Gastrointestinal: Denies constipation. Physical Exam - Vitals- Vital signs stable. Results Plan Patient was informed and verbally consented to the use of an ambient scribe for clinic note documentation during this visit. 1. Opioid use, unspecified, uncomplicated F11.90 The patient is treated with buprenorphine/naloxone (Suboxone) 4/1 mg three times daily for opioid use disorder. To accommodate his desire to taper after the holidays, a prescription has been issued to last 30 days with two refills. As part of future considerations, we may explore switching to injectable formulations such as Sublocade or Brixadi to help maintain treatment efficacy while tapering off oral medication. 2. Current Treatment With Buprenorphine/Naloxone Buprenorphine/naloxone treatment remains in place for the patient?s opioid use disorder, with possible plans to taper in the future. This will involve reassessing his condition in the spring and considering alternatives such as injectable formulations to sustain treatment adherence and minimize any potential withdrawal symptoms. Discussion Notes During the consultation, we thoroughly discussed the patient's current treatment regimen for opioid use disorder and his intention to begin tapering this treatment following the holiday period. The patient was informed about the potential transition from oral buprenorphine/naloxone to depot formulations like Sublocade or Brixadi as he tapers off the oral doses. We reviewed the risks and benefits of maintaining his existing regimen while exploring injectable options for a controlled and effective tapering process. I encouraged the patient to continue monitoring his mental and physical health closely and provided a prescription for his current medication with the necessary refills. Follow-up was advised in the spring to revisit the tapering plan. Medical Decision Making The decision to continue the current buprenorphine/naloxone treatment is based on its demonstrated effectiveness and the patient's stability and absence of adverse effects such as depression or constipation. As we approach tapering, the patient?s interest in transitioning to a long-term injectable formulation was considered a viable action plan to prevent relapse and withdrawal symptoms. Observations during follow-ups will guide the implementation of tapering, with plans to evaluate the use of depot formulations. This approach ensures sustained management of opioid use disorder while respecting the patient's treatment preferences. Patient Instructions - Continue taking prescribed medication as directed (Suboxone 4/1 mg three times a day). - Follow up in spring or sooner if needed for discussion on medication tapering. - Monitor for any new symptoms or concerns about your mental or physical health. - Keep track of your mood and wellness to report any changes. - Prepare for possible medication adjustments and discussions regarding injectable options like Sublocade or Brixadi in future visits. [facility] Medical History (Updated 01/16/25 @ 15:23 by Susan Herrera MD) Influenza vaccine administered Vitamin D deficiency Screening for colon cancer BPH (benign prostatic hyperplasia) Gout Hepatitis C Surgical History (Updated 04/02/25 @ 10:11 by LATONYA Blum) History of right cataract surgery History of appendectomy History of nasal surgery Family History Father Heart disease Social History Housing: House Alcohol intake: current Alcohol intake frequency: a few times a week Patient Tobacco Use Status: Never used Tobacco e-Cigarette/Vaping Use: Never Used Second Hand Smoke Exposure: No Substance Use Type: Marijuana service: No Current occupational status: employed Cognitive needs: No Hearing needs: No Vision needs: Yes (Glasses) Physical Exam Vital Signs: Last Vital Signs Pulse 88 04/13/25 10:07 BP 144/88 H 04/13/25 10:07 Pulse Ox 99 04/13/25 10:07 Assessment & Plan Assessment & Plan (1) Opioid use disorder, mild, in early remission, abuse: Comment: He is doing well. Code(s): F11.11 - Opioid abuse, in remission Category: Medical Plan: as above Medications: New buprenorphine-naloxone 4-1 mg (Suboxone) place 1 strip/tab under (each) side of tongue 1 film sublingual TID 90 ea 2RF 30 days Coding Level of Care Code Est Pt Level 3 (14156) Diagnoses Opioid use disorder, mild, in early remission, abuse F11.11
--- OUTSIDE RECORDS SUMMARY | 2025-04-13 11:54 | XMS_ITS | Patient Health Record ---
Author Organization [facility] Address [address] [place] [address] Care Team Providers Care Radiology Asst Name Role Phone Elizabet Rhodes Primary Care Provider Avery Damon Unavailable [phone] Allergies Allergen (clinical drug ingredient) Drug/Non Drug [...] Insured Coverage Start Date Coverage End Date [facility] ([facility]) [address] [place] [id number] [phone] [id number] Joan Almazan Self - patient is the insured Medical (General) History Medical History History ICD Code Anxiety Back,Hip,and Knee pain High blood pressure Numbness Sciatica Measles Mumps Chicken pox Surgical History Surgery Date(Month/Year) appendectomy 2018
== END 2025-04-13 10:29 | disposition home or self-care (01) ==
LOC: HO.HCC 10:00
PROVIDERS: PCP Internal Medicine; Visit Provider Internal Medicine
DX: F11.11 Opioid abuse, in remission (principal)
CPT/HCPCS: 99213

== ENCOUNTER → 2025-04-13 10:00 | Outpatient (BNVA) | payer MEDICARE, OTHER, SELFPAY | PROVIDERS: PCP Internal Medicine; Visit Provider Internal Medicine | DX: F11.11 Opioid abuse, in remission (principal) | CPT/HCPCS: 99212 ==